=== PATIENT | male | born 1985 | race African-American/Black ===

== ENCOUNTER 2021-02-17 03:37 | Inpatient (IN) | payer OTHER, SELFPAY ==
--- NOTE | 2021-02-17 | ECG_ITS ---
Test Reason : cocaine use Blood Pressure : / mmHG Vent. Rate : 054 BPM Atrial Rate : 054 BPM P-R Int : 176 ms QRS Dur : 100 ms QT Int : 462 ms P-R-T Axes : 062 076 066 degrees QTc Int : 438 ms Sinus bradycardia Minimal voltage criteria for LVH, may be normal variant ( Sokolow-Grimaldo ) Borderline ECG When compared to the previous EKG of No significant changes seen Referred By: Irasema Rangel Electronically Signed By:ERNESTO HU MD
[2021-02-17 03:49] VITALS: BP 104/68; PULSE 89; RESP 16; TEMP 36.6; O2SAT 96; BMI 25.0
[2021-02-17 04:11] LABS: Appearance Urine CLEAR; Color Urine YELLOW; Glucose Urine UA NEG (NEG); Leukocyte Esterase Urine NEG (NEG); Nitrite Urine NEG (NEG); Specific Gravity - Urine >= 1.030 (1.005-1.025); UACC Culture Trigger NO; Urine Blood NEG (NEG); Urine Ketones NEG (NEG); Urine Protein 1+ MG/DL (NEG-TRACE)
[2021-02-17 04:17] LABS: Mucus Urine 3+ /LPF; RBC Urine 0 /HPF (0); Sperm Urine NOTED; Squamous Epithelial Cell Urine 1+ /LPF; WBC Urine 0-2 /HPF (0-4)
[2021-02-17 04:25] LABS: Amphetamine Screen Urine Not Detected (Not Detect); Barbiturates, Urine Not Detected (Not Detect); Benzodiazepines Screen Urine Not Detected (Not Detect); Cannabinoid Screen Urine Not Detected (Not Detect); Cocaine Screen Urine POSITIVE (Not Detect); Fentanyl, urine POSITIVE (Not Detect); Opiate Screen Urine POSITIVE (Not Detect); Phencyclidine Screen Urine Not Detected (Not Detect)
[2021-02-17 04:30] LABS: COVID-19 Test Negative (Negative)
--- NOTE | 2021-02-17 06:40 | PC.NURSE ---
Patient arrived at ED POD at 0400, snacked and refreshed, slept since then, behavior appropriate and cooperative, patient is currently not on medication, behavior appropriate, BHN referral completed/confirmed, patient will be evaluated in the morning, will continue to monitor.
--- NOTE | 2021-02-17 07:10 | ED.PSYCH ---
HPI - Psych General Chief Complaint: Psychiatric Symptoms Stated Complaint: Depressed/SI Time Seen by Provider: 02/17/21 07:10 Source: patient Mode of arrival: ambulatory Limitations: no limitations History of Present Illness MD complaint: suicidal ideation and feels depressed Onset (ago): week(s) Duration: getting worse History of same: Yes Relieving factors: none Exacerbating factors: other (not taking his medications) Context: not taking psychiatric medications Associated psychiatric symptoms: depression and suicidal ideation Associated symptoms: denies other symptoms Treatments prior to arrival: none Related Data Home Medications Medication Instructions Recorded Confirmed methadone 10 mg tablet 85 mg PO DAILY 02/17/21 02/17/21 Allergies Allergy/AdvReac Type Severity Reaction Status Date / Time No Known Allergies Allergy Unverified 11/19/19 15:29 [No Known Allergies*] Review of Systems Review of Systems: Constitutional : No Fever, No Chills ENT/Mouth : No Ear Pain, No Nasal Congestion, No sore throat Eyes: No Eye Pain, No Swelling, No Redness Cardiovascular : No Chest Pain, No SOB Respiratory : No Cough, No Sputum, No Dyspnea Gastrointestinal : No Nausea, No Vomiting, No Diarrhea, No Hematochezia, No Melena Genitourinary : No Dysuria, No Urinary Frequency, No Hematuria Musculoskeletal : No Myalgias Skin : No Skin Lesions, No rash Neuro : No Weakness, No Numbness, No Paresthesias, No Dizziness, No Headache Psych : positive Anxiety, positive Depression, positive SI no HI Heme/Lymph: No Lymphadenopathy Endocrine : No Polyuria, No Polydipsia All other systems reviewed and are negative [facility] Past Medical History Medical History (Updated 02/17/21 @ 10:21 by Chiquis Kiser DO) Depression Opiate dependence Social History Social History (Updated 02/17/21 @ 07:26 by Chiquis Kiser DO) Patient Tobacco Use Status: Current everyday Tobacco user Advance Directives: No Healthcare Proxy: No Guardian: No Physical Exam Vital Signs: Vital Signs: Last Vital Signs Temp 97.9 F 02/17/21 03:49 Pulse 89 02/17/21 03:49 Resp 18 02/17/21 08:52 BP 104/68 02/17/21 03:49 Pulse Ox 96 02/17/21 03:49 BMI result Body Mass Index 25.0 Appearance: Alert. Oriented X3. No acute distress. Eyes: Pupils equal, round and reactive to light. ENT: Pharynx normal. Neck: Normal inspection. Neck supple. CVS: Normal heart rate and rhythm. Pulses normal. Respiratory: No respiratory distress. Breath sounds normal. Abdomen: Soft and nontender. Skin: Skin warm and dry. Normal skin color. Normal skin turgor. Extremities: No lower extremity edema. No calf ttp Neuro: Oriented X 3. No motor deficit. No sensory deficit. CN2-12 Course Course Course Narrative: Physician observation started at 1020am Patient placed in physician observation because the patient needed more time for bed search given request for inpatient status by CARE team. At the time observation was started the patient's vitals were stable, patient is alert and oriented,Neuro: nonfocal, CV RRR, Lungs clear Physician observation ended at 145pm. Plan to admit to M5 per CARE team. MDM - Psych MDM Narrative Medical decision making narrative: 35 yo male no medical complaints here with SI and depression will obtain labs and refer to [facility] Lab Data Result diagrams: 02/17/21 07:57 02/17/21 07:57 Labs: Lab Results 02/17/21 02/17/21 02/17/21 Range/Units 04:03 04:03 04:03 WBC (4.8-10.8) X10*3/uL RBC (4.60-5.80) X10*6/uL Hgb (14.0-18.0) g/dl Hct (42.0-52.0) % MCV (80.0-98.0) fL MCH (27.0-33.0) pg MCHC (31.0-36.0) g/dl RDW (11.0-16.0) % Plt Count (160-400) X10*3/uL MPV (9.4-12.4) fL Absolute Nucleated RBC (0.0-0.012) X10*3/uL Nucleated RBC % (auto) (0.0-0.2) /100WBC Sodium (135-145) mmol/L Potassium (3.3-5.1) mmol/L Chloride (96-108) mmol/L Carbon Dioxide (22-29) mmol/L Anion Gap (12-20) BUN (9-16) mg/dL Creatinine (0.5-1.4) mg/dL Estim Creat Clear Calc Estimated GFR Random Glucose (60-115) mg/dL Calcium (8.4-10.2) mg/dL Total Bilirubin (0.0-1.0) mg/dL Direct Bilirubin (0.0-0.5) mg/dL AST (5-37) U/L ALT (0-40) U/L Alkaline Phosphatase (39-117) U/L Total Protein (6.5-8.0) g/dL Albumin (3.5-5.0) g/dL Urine Color YELLOW Urine Appearance CLEAR Urine pH 6.0 (5.0-8.0) Ur Specific [place] >= 1.030 H (1.005-1.025) Urine Protein 1+ H (NEG-TRACE) MG/DL Urine Glucose (UA) NEG (NEG) MG/DL Urine Ketones NEG (NEG) MG/DL Urine Blood NEG (NEG) Urine Nitrite NEG (NEG) Ur Leukocyte Esterase NEG (NEG) Urine RBC 0 (0) /HPF Urine WBC 0-2 (0-4) /HPF Ur Squamous Epith Cells 1+ /LPF Urine Bacteria NONE /LPF Urine Mucus 3+ /LPF Urine Sperm NOTED Urine Opiates Screen POSITIVE H (Not Detect) Urine Fentanyl Screen POSITIVE H (Not Detect) Ur Barbiturates Screen Not Detected (Not Detect) Ur Phencyclidine Scrn Not Detected (Not Detect) Ur Amphetamines Screen Not Detected (Not Detect) U Benzodiazepines Scrn Not Detected (Not Detect) Urine Cocaine Screen POSITIVE H (Not Detect) U Marijuana (THC) Screen Not Detected (Not Detect) COVID-19 (KULDEEP) Negative (Negative) COVID-19 Clin Com See Note 02/17/21 02/17/21 Range/Units 07:57 07:57 WBC 10.2 (4.8-10.8) X10*3/uL RBC 5.19 (4.60-5.80) X10*6/uL Hgb 15.0 (14.0-18.0) g/dl Hct 45.5 (42.0-52.0) % MCV 87.7 (80.0-98.0) fL MCH 28.9 (27.0-33.0) pg MCHC 33.0 (31.0-36.0) g/dl RDW 12.8 (11.0-16.0) % Plt Count 209 (160-400) X10*3/uL MPV 9.5 (9.4-12.4) fL Absolute Nucleated RBC 0.000 (0.0-0.012) X10*3/uL Nucleated RBC % (auto) 0.0 (0.0-0.2) /100WBC Sodium 142 (135-145) mmol/L Potassium 3.8 (3.3-5.1) mmol/L Chloride 105 (96-108) mmol/L Carbon Dioxide 29 (22-29) mmol/L Anion Gap 12 (12-20) BUN 18 H (9-16) mg/dL Creatinine 1.15 (0.5-1.4) mg/dL Estim Creat Clear Calc 97.4 Estimated GFR > 60 Random Glucose 104 (60-115) mg/dL Calcium 9.2 (8.4-10.2) mg/dL Total Bilirubin 0.6 (0.0-1.0) mg/dL Direct Bilirubin 0.2 (0.0-0.5) mg/dL AST 18 (5-37) U/L ALT 14 (0-40) U/L Alkaline Phosphatase 69 (39-117) U/L Total Protein 6.6 (6.5-8.0) g/dL Albumin 3.8 (3.5-5.0) g/dL Urine Color Urine Appearance Urine pH (5.0-8.0) Ur Specific [place] (1.005-1.025) Urine Protein (NEG-TRACE) MG/DL Urine Glucose (UA) (NEG) MG/DL Urine Ketones (NEG) MG/DL Urine Blood (NEG) Urine Nitrite (NEG) Ur Leukocyte Esterase (NEG) Urine RBC (0) /HPF Urine WBC (0-4) /HPF Ur Squamous Epith Cells /LPF Urine Bacteria /LPF Urine Mucus /LPF Urine Sperm Urine Opiates Screen (Not Detect) Urine Fentanyl Screen (Not Detect) Ur Barbiturates Screen (Not Detect) Ur Phencyclidine Scrn (Not Detect) Ur Amphetamines Screen (Not Detect) U Benzodiazepines Scrn (Not Detect) Urine Cocaine Screen (Not Detect) U Marijuana (THC) Screen (Not Detect) COVID-19 (KULDEEP) (Negative) COVID-19 Clin Com Discharge Plan Discharge Clinical Impression: Suicidal ideation Depression Qualifiers: Depression Type: unspecified Qualified Code(s): F32.A - Depression, unspecified Patient Disposition: Admitted As Inpatient
--- NOTE | 2021-02-17 07:29 | PC.NURSE ---
patient appears to remain at rest at present, respirations are even and unlabored, pateitn appears in no distress.
[2021-02-17 08:03] LABS: Hematocrit 45.5 % (42.0-52.0); Mean Corpuscular Hemoglobin 28.9 pg (27.0-33.0); Mean Corpuscular Volume 87.7 fL (80.0-98.0); Mean Platelet Volume 9.5 fL (9.4-12.4); Platelet Count 209 X10*3/uL (160-400); Red Blood Count 5.19 X10*6/uL (4.60-5.80); Red Cell Distribution Width 12.8 % (11.0-16.0); White Blood Count 10.2 X10*3/uL (4.8-10.8)
[2021-02-17 08:18] LABS: Alanine Aminotransferase 14 U/L (0-40); Albumin Level 3.8 g/dL (3.5-5.0); Alkaline Phosphatase 69 U/L (39-117); Anion Gap 12 (12-20); Aspartate Amino Transferase 18 U/L (5-37); Bilirubin Direct 0.2 mg/dL (0.0-0.5); Bilirubin Total 0.6 mg/dL (0.0-1.0); Blood Urea Nitrogen 18 mg/dL (9-16); Calcium 9.2 mg/dL (8.4-10.2); Carbon Dioxide 29 mmol/L (22-29); Chloride 105 mmol/L (96-108); Creatinine Clr Calc Pharmacy 97.4; Estimated Glomerular Filt Rate > 60; Glucose Random 104 mg/dL (60-115); Potassium 3.8 mmol/L (3.3-5.1); Sodium 142 mmol/L (135-145); Total Protein 6.6 g/dL (6.5-8.0)
[2021-02-17 08:52] VITALS: RESP 18
[2021-02-17] MEDS: methADONE HCl 20 MG/2 ML ORAL.CONC 85 MG PO (11:25)
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
[2021-02-17 19:30] VITALS: BP 108/54; PULSE 67; TEMP 36.4; O2SAT 98
[2021-02-17 20:51] VITALS: BP 89/54; PULSE 79
[2021-02-17] MEDS: Mirtazapine 7.5 MG TABLET PO (20:51)
[2021-02-17] MEDS: Nicotine Polacrilex 2 MG GUM 4 MG BUCCAL (21:24)
--- NOTE | 2021-02-18 09:35 | HO.ADDICT_ITS ---
History of Present Illness Date of Service: 02/18/21 Chief Complaint: SI Reason for Consult: opioid use disorder, on methadone therapy Requesting physician: Irasema Rangel Discussed with referring provider: Yes Sources of Information: patient interviewed and chart reviewed HPI Narrative: Patient is a 35-year-old male, history of opioid use disorder, cocaine use. Patient currently receiving methadone 85 mg daily. EKG completed last evening, QTC within normal limits. Tox screen on 02/17/2021 positive for opiates, fentanyl, cocaine. 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 He was lying on one side wrapped in blankets. He was alert and oriented however, and set up to discuss substance use disorder. He reports that he has been going to [facility] methadone clinic for several months. He reports that approximately 1 week ago his methadone dose was increased from 75 mg daily to 85 mg daily. He did display some withdrawal symptoms this morning including restless legs, anxiety. He reports that he had been using approximately 1 bundle daily of heroin prior to admission. He reports his last use was ?a couple of days ago ?. He reports that he is happy with current methadone dose of 85 mg. He was agreeable to have the p.r.n. comfort meds added such as hydroxyzine and loperamide. Review of Systems Review of Systems Yes all other systems are reviewed and are negative Diagnostics Vital Signs (24Hr): Vital Signs - 24 hr 02/17/21 19:30 02/17/21 20:51 Temperature 97.5 F Pulse Rate 67 79 Blood Pressure 108/54 L 89/54 L Pulse Oximetry 98 BMI result Body Mass Index 25.0 Labs Results: 02/17/21 07:57 02/17/21 07:57 Labs: Laboratory Results - last 48 hr 02/17/21 02/17/21 02/17/21 04:03 04:03 04:03 WBC RBC Hgb Hct MCV MCH MCHC RDW Plt Count MPV Absolute Nucleated RBC Nucleated RBC % (auto) Sodium Potassium Chloride Carbon Dioxide Anion Gap BUN Creatinine Estim Creat Clear Calc Estimated GFR Random Glucose Calcium Total Bilirubin Direct Bilirubin AST ALT Alkaline Phosphatase Total Protein Albumin Urine Color YELLOW Urine Appearance CLEAR Urine pH 6.0 Ur Specific [place] >= 1.030 H Urine Protein 1+ H Urine Glucose (UA) NEG Urine Ketones NEG Urine Blood NEG Urine Nitrite NEG Ur Leukocyte Esterase NEG Urine RBC 0 Urine WBC 0-2 Ur Squamous Epith Cells 1+ Urine Bacteria NONE Urine Mucus 3+ Urine Sperm NOTED Urine Opiates Screen POSITIVE H Urine Fentanyl Screen POSITIVE H Ur Barbiturates Screen Not Detected Ur Phencyclidine Scrn Not Detected Ur Amphetamines Screen Not Detected U Benzodiazepines Scrn Not Detected Urine Cocaine Screen POSITIVE H U Marijuana (THC) Screen Not Detected COVID-19 (KULDEEP) Negative COVID-19 Clin Com See Note 02/17/21 02/17/21 07:57 07:57 WBC 10.2 RBC 5.19 Hgb 15.0 Hct 45.5 MCV 87.7 MCH 28.9 MCHC 33.0 RDW 12.8 Plt Count 209 MPV 9.5 Absolute Nucleated RBC 0.000 Nucleated RBC % (auto) 0.0 Sodium 142 Potassium 3.8 Chloride 105 Carbon Dioxide 29 Anion Gap 12 BUN 18 H Creatinine 1.15 Estim Creat Clear Calc 97.4 Estimated GFR > 60 Random Glucose 104 Calcium 9.2 Total Bilirubin 0.6 Direct Bilirubin 0.2 AST 18 ALT 14 Alkaline Phosphatase 69 Total Protein 6.6 Albumin 3.8 Urine Color Urine Appearance Urine pH Ur Specific [place] Urine Protein Urine Glucose (UA) Urine Ketones Urine Blood Urine Nitrite Ur Leukocyte Esterase Urine RBC Urine WBC Ur Squamous Epith Cells Urine Bacteria Urine Mucus Urine Sperm Urine Opiates Screen Urine Fentanyl Screen Ur Barbiturates Screen Ur Phencyclidine Scrn Ur Amphetamines Screen U Benzodiazepines Scrn Urine Cocaine Screen U Marijuana (THC) Screen COVID-19 (KULDEEP) COVID-19 Clin Com Mental Status Exam Mental Status Exam Narrative: Alert and oriented, in NAD. Denies cravings. Opioid withdrawal symptoms noted include restless legs, some anxiety. Medications Medications Current Medications Acetaminophen (Acetaminophen 325 Mg Tablet) 650 mg PO Q6H PRN PRN Reason: Headache/Pain Mild Scale (1-3) Al Hydroxide/Mg Hydroxide (Magnesium Hydrox/Alum Hydrox 30 Ml Oral.Susp) 30 ml PO Q6H PRN PRN Reason: Heartburn/Nausea Clonidine HCl (Clonidine Hcl 0.1 Mg Tablet) 0.1 mg PO Q4H PRN; Protocol PRN Reason: Opioid Withdrawal signs Dicyclomine HCl (Dicyclomine Hcl 10 Mg Capsule) 20 mg PO QID PRN PRN Reason: stomach cramps Hydroxyzine HCl (Hydroxyzine Hcl 25 Mg Tablet) 25 mg PO BEDTIME PRN PRN Reason: Anxiety Loperamide HCl (Loperamide Hcl 2 Mg Capsule) 2 mg PO Q6H PRN PRN Reason: loose stools Magnesium Hydroxide (Milk Of Magnesia 30 Ml Oral.Susp) 30 ml PO DAILY PRN PRN Reason: Constipation Methadone HCl (Methadone Hcl 20 Mg/2 Ml Oral.Conc) 85 mg PO DAILY [facility] Last Admin: 02/17/21 11:25 Dose: 85 mg Documented by: Mirtazapine (Mirtazapine 7.5 Mg Tablet) 7.5 mg PO BEDTIME ROBERT Last Admin: 02/17/21 20:51 Dose: 7.5 mg Documented by: Nicotine Polacrilex (Nicotine Polacrilex 2 Mg Gum) 4 mg BUCCAL Q2H PRN PRN Reason: Nicotine Cravings Last Admin: 02/17/21 21:24 Dose: 4 mg Documented by: Trazodone HCl (Trazodone Hcl 50 Mg Tablet) 50 mg PO BEDTIME PRN PRN Reason: Insomnia Allergies Allergies Allergy/AdvReac Type Severity Reaction Status Date / Time haloperidol [From Haldol] AdvReac Muscle Verified 02/17/21 16:12 cramps Assessment & Plan Assessment & Plan (1) Opioid use disorder, severe, in early remission, on maintenance therapy, dependence: Status: Acute Code(s): F11.21 - Opioid dependence, in remission Assessment and Plan: Client reports he has a history of heroin and cocaine use. Reports he has been going to a methadone clinic at [facility] for several months. He reports his dose was recently increased 1 week ago to 85 mg. He states he has continue to use methadone while at the clinic, approximately 1 bundle of heroin daily. He reports his last use as a few days ago. He denies any cravings at this time, reports that he feels comfortable. Assessment and Plan: 1. Continue with current methadone dose 85 mg daily. 2. Add p.r.n. hydroxyzine, loperamide, to assist with any type of withdrawal symptoms. 3. Recovery team to meet with patient as needed. These recommendations were shared with covering provider Dr. Stanley. Thank you for this consultation. If you have any further questions or concerns, please do not hesitate to contact addiction/recovery team. I spent minutes with the patient and/or on the patient floor today, gre ater than?50% of which was spent counseling/coordinating care. [facility] Past Medical History Medical History (Updated 02/18/21 @ 09:39 by Theresa Muñiz) Depression Opiate dependence Social History Social History (Updated 02/17/21 @ 07:26 by Chiquis Kiser DO) Household Members: Other Housing: Apartment Do you presently have visiting nurse or other home services: No Patient Tobacco Use Status: Current everyday Tobacco user Tobacco use type: Cigarette Cigarette Packs Per Day: 1 Cigarettes Per Day: 20.0 Smoked in Last 30 Days: Yes Patient Interested in Nicotine Replacement: Yes (gum) Patient Given Instructions on How to Stop Smoking: No (pt declined) Second Hand Smoke Exposure: No Use of substances other than those prescribed or required for medical reasons: Yes Substance Use Type: Crack/Cocaine and Heroin Substance Use Frequency: Daily Last Used Substance: Days (ago) Currently Displaying Signs/Symptoms of Drug Intoxication Withdrawal: No Any prior treatment program specific to substance use: Yes (on methadone) Have you been hit, kicked, punched, or otherwise hurt by someone within the past year? If so, by whom?: No Do you feel safe in your current relationship?: No Current Relationship Is there a partner from a previous relationship who is making you feel unsafe now?: No Are you made to feel afraid or neglected: No Spiritual Healthcare Practices: n/a Roman [employer] Healthcare Practices: n/a Cultural Healthcare Practices: n/a Advance Directives: No Healthcare Proxy: No Guardian: No Do you have thoughts of harming others: None Do you have a plan to hurt others: No Plan Recently lost weight without trying: Unsure How much weight loss: Unsure Eating poorly because of decreased appetite: Yes Nutrition screen score: 5 Nutrition Risks: Poor intake 0-25% >4 days Poor oral hygiene: No
[2021-02-18 09:49] VITALS: BP 86/51; PULSE 65; TEMP 36.8
[2021-02-18 11:29] VITALS: BP 115/68; PULSE 72; RESP 17
[2021-02-18] MEDS: methADONE HCl 20 MG/2 ML ORAL.CONC 85 MG PO (11:30)
[2021-02-18 11:34] VITALS: PULSE 725
--- NOTE | 2021-02-18 12:09 | P.PNPSI_ITS ---
Subjective Subjective Date of Service: 02/18/21 Reason For Visit: SI Subjective Notes: Conditional Voluntary Interim History: The nursing staff reported that the patient has been stable, irritable at times but able to cope with the withdrawal symptoms. On interview, he was minimally engaged, with dysphoria, able to contract for safety. Mental Status Exam Mental Status Exam Patient Appearance: Disheveled Patient Orientation: Person Level of Consciousness: Awake and Obtunded Patient Behavior: Guarded and Poor Eye Contact Mood Description: Withdrawn Affect Description: Constricted Patient Cognition Impaired: Yes Ability to Follow Directions: Good Speech Pattern: Clear Hallucinations: None Delusions: Not Present Thought Process: Linear Thought Content: positive for Circumstantial and positive for Poverty of Content Judgement: Fair Diagnostics Vital Signs (24Hr): Vital Signs - 24 hr 02/17/21 19:30 02/17/21 20:51 02/18/21 09:49 Temperature 97.5 F 98.3 F Pulse Rate 67 79 65 Respiratory Rate Blood Pressure 108/54 L 89/54 L 86/51 L Pulse Oximetry 98 02/18/21 11:29 Temperature Pulse Rate 72 Respiratory Rate 17 Blood Pressure 115/68 Pulse Oximetry BMI result Body Mass Index 25.0 Labs Results: 02/17/21 07:57 02/17/21 07:57 Labs: Laboratory Results - last 48 hr 02/17/21 02/17/21 02/17/21 04:03 04:03 04:03 WBC RBC Hgb Hct MCV MCH MCHC RDW Plt Count MPV Absolute Nucleated RBC Nucleated RBC % (auto) Sodium Potassium Chloride Carbon Dioxide Anion Gap BUN Creatinine Estim Creat Clear Calc Estimated GFR Random Glucose Calcium Total Bilirubin Direct Bilirubin AST ALT Alkaline Phosphatase Total Protein Albumin Urine Color YELLOW Urine Appearance CLEAR Urine pH 6.0 Ur Specific [place] >= 1.030 H Urine Protein 1+ H Urine Glucose (UA) NEG Urine Ketones NEG Urine Blood NEG Urine Nitrite NEG Ur Leukocyte Esterase NEG Urine RBC 0 Urine WBC 0-2 Ur Squamous Epith Cells 1+ Urine Bacteria NONE Urine Mucus 3+ Urine Sperm NOTED Urine Opiates Screen POSITIVE H Urine Fentanyl Screen POSITIVE H Ur Barbiturates Screen Not Detected Ur Phencyclidine Scrn Not Detected Ur Amphetamines Screen Not Detected U Benzodiazepines Scrn Not Detected Urine Cocaine Screen POSITIVE H U Marijuana (THC) Screen Not Detected COVID-19 (KULDEEP) Negative COVID-19 Clin Com See Note 02/17/21 02/17/21 07:57 07:57 WBC 10.2 RBC 5.19 Hgb 15.0 Hct 45.5 MCV 87.7 MCH 28.9 MCHC 33.0 RDW 12.8 Plt Count 209 MPV 9.5 Absolute Nucleated RBC 0.000 Nucleated RBC % (auto) 0.0 Sodium 142 Potassium 3.8 Chloride 105 Carbon Dioxide 29 Anion Gap 12 BUN 18 H Creatinine 1.15 Estim Creat Clear Calc 97.4 Estimated GFR > 60 Random Glucose 104 Calcium 9.2 Total Bilirubin 0.6 Direct Bilirubin 0.2 AST 18 ALT 14 Alkaline Phosphatase 69 Total Protein 6.6 Albumin 3.8 Urine Color Urine Appearance Urine pH Ur Specific [place] Urine Protein Urine Glucose (UA) Urine Ketones Urine Blood Urine Nitrite Ur Leukocyte Esterase Urine RBC Urine WBC Ur Squamous Epith Cells Urine Bacteria Urine Mucus Urine Sperm Urine Opiates Screen Urine Fentanyl Screen Ur Barbiturates Screen Ur Phencyclidine Scrn Ur Amphetamines Screen U Benzodiazepines Scrn Urine Cocaine Screen U Marijuana (THC) Screen COVID-19 (KULDEEP) COVID-19 Clin Com Medications Medications Current Medications Acetaminophen (Acetaminophen 325 Mg Tablet) 650 mg PO Q6H PRN PRN Reason: Headache/Pain Mild Scale (1-3) Al Hydroxide/Mg Hydroxide (Magnesium Hydrox/Alum Hydrox 30 Ml Oral.Susp) 30 ml PO Q6H PRN PRN Reason: Heartburn/Nausea Clonidine HCl (Clonidine Hcl 0.1 Mg Tablet) 0.1 mg PO Q4H PRN; Protocol PRN Reason: Opioid Withdrawal signs Dicyclomine HCl (Dicyclomine Hcl 10 Mg Capsule) 20 mg PO QID PRN PRN Reason: stomach cramps Hydroxyzine HCl (Hydroxyzine Hcl 25 Mg Tablet) 25 mg PO BEDTIME PRN PRN Reason: Anxiety Hydroxyzine HCl (Hydroxyzine Hcl 50 Mg Tablet) 50 mg PO Q6H PRN PRN Reason: anxiety / withdrawal sx Loperamide HCl (Loperamide Hcl 2 Mg Capsule) 2 mg PO Q6H PRN PRN Reason: loose stools Magnesium Hydroxide (Milk Of Magnesia 30 Ml Oral.Susp) 30 ml PO DAILY PRN PRN Reason: Constipation Methadone HCl (Methadone Hcl 20 Mg/2 Ml Oral.Conc) 85 mg PO DAILY ROBERT Last Admin: 02/18/21 11:30 Dose: 85 mg Documented by: Mirtazapine (Mirtazapine 7.5 Mg Tablet) 7.5 mg PO BEDTIME ROBERT Last Admin: 02/17/21 20:51 Dose: 7.5 mg Documented by: Nicotine Polacrilex (Nicotine Polacrilex 2 Mg Gum) 4 mg BUCCAL Q2H PRN PRN Reason: Nicotine Cravings Last Admin: 02/17/21 21:24 Dose: 4 mg Documented by: Trazodone HCl (Trazodone Hcl 50 Mg Tablet) 50 mg PO BEDTIME PRN PRN Reason: Insomnia Allergies Allergies Allergy/AdvReac Type Severity Reaction Status Date / Time haloperidol [From Haldol] AdvReac Muscle Verified 02/17/21 16:12 cramps Assessment & Plan Assessment & Plan (1) Opioid use disorder, severe, in early remission, on maintenance therapy, dependence: Status: Acute Code(s): F11.21 - Opioid dependence, in remission (2) MDD (major depressive disorder), recurrent severe, without psychosis: Status: Acute Code(s): F33.2 - Major depressive disorder, recurrent severe without psychotic features Assessment and Plan: Tani is a 35 y.o. male who self-presented to [facility] on 02/17 reporting depression, SI, and command AH to stab himself. Pt relapsed on heroin, cocaine, and was abusing his methadone. He has long hx of polysubstance abuse and chronic relapsing. Pt reports he has been struggling with sx of depression since Thanksgiving leading to poor self care, poor sleep, low appetite, avolition, and anhedonia in context of heroin abuse. Pt denies psychotic sx at this time. Denies SI/SIB/HI upon inquiry. Pt has been non-adherent with psych treatment. Plan: Will initiate COWs monitoring, order addiction consult.?Will start remeron 7.5 mg QHS for sleep, appetite, and depression tonight. May consider re-starting SSRI for sx of depression, will defer to primary psych team. Monitor response to medications. Monitor for safety in the milieu. Discharge on stabilization. Patient seen. Chart reviewed. Discussed with team. Obtain collateral contact info?as needed I spent minutes with the patient and/or on the patient floor today, greater than?50% of which was spent counseling/coordinating care. Reason for contiued inpatient stay Substantial Risk for: inability to function, rapid decompensation and med/psych decompensation
[2021-02-18] MEDS: Nicotine Polacrilex 2 MG GUM 4 MG BUCCAL ×3 (13:30→20:25)
[2021-02-18 16:11] VITALS: RESP 17
[2021-02-18] MEDS: Milk of Magnesia 30 ML ORAL.SUSP PO (18:40)
[2021-02-18 20:00] VITALS: BP 103/56; PULSE 69; RESP 16; TEMP 36.7; O2SAT 97
[2021-02-18] MEDS: Mirtazapine 7.5 MG TABLET PO (21:27)
[2021-02-18] MEDS: hydrOXYzine HCL 25 MG TABLET PO (21:27)
[2021-02-19] MEDS: methADONE HCl 20 MG/2 ML ORAL.CONC 85 MG PO (10:22)
--- NOTE | 2021-02-19 11:33 | P.PNPSI_ITS ---
Subjective Subjective Date of Service: 02/19/21 Reason For Visit: SI Interim History: The nursing staff reported that the patient feels safe in the unit, he is still anxious and depressed but no suicidal ideation. He slept well and had his meals. On interview, he was laying on his room and denied new symptoms, refused to engage on interview. Mental Status Exam Mental Status Exam Patient Appearance: Appropriate Patient Orientation: Person Level of Consciousness: Appropriate Patient Behavior: Passive Mood Description: Depressed Affect Description: Constricted Patient Cognition Impaired: No Ability to Follow Directions: Good Speech Pattern: Clear Hallucinations: None Thought Process: Linear Thought Content: positive for Circumstantial Judgement: Fair Diagnostics Vital Signs (24Hr): Vital Signs - 24 hr 02/18/21 16:11 02/18/21 20:00 Temperature 98.0 F Pulse Rate 69 Respiratory Rate 17 16 Blood Pressure 103/56 L Pulse Oximetry 97 BMI result Body Mass Index 25.0 Labs Results: 02/17/21 07:57 02/17/21 07:57 Medications Medications Current Medications Acetaminophen (Acetaminophen 325 Mg Tablet) 650 mg PO Q6H PRN PRN Reason: Headache/Pain Mild Scale (1-3) Al Hydroxide/Mg Hydroxide (Magnesium Hydrox/Alum Hydrox 30 Ml Oral.Susp) 30 ml PO Q6H PRN PRN Reason: Heartburn/Nausea Clonidine HCl (Clonidine Hcl 0.1 Mg Tablet) 0.1 mg PO Q4H PRN; Protocol PRN Reason: Opioid Withdrawal signs Dicyclomine HCl (Dicyclomine Hcl 10 Mg Capsule) 20 mg PO QID PRN PRN Reason: stomach cramps Hydroxyzine HCl (Hydroxyzine Hcl 25 Mg Tablet) 25 mg PO BEDTIME PRN PRN Reason: Anxiety Last Admin: 02/18/21 21:27 Dose: 25 mg Documented by: Hydroxyzine HCl (Hydroxyzine Hcl 50 Mg Tablet) 50 mg PO Q6H PRN PRN Reason: anxiety / withdrawal sx Loperamide HCl (Loperamide Hcl 2 Mg Capsule) 2 mg PO Q6H PRN PRN Reason: loose stools Magnesium Hydroxide (Milk Of Magnesia 30 Ml Oral.Susp) 30 ml PO DAILY PRN PRN Reason: Constipation Last Admin: 02/18/21 18:40 Dose: 30 ml Documented by: Methadone HCl (Methadone Hcl 20 Mg/2 Ml Oral.Conc) 85 mg PO DAILY ROBERT Last Admin: 02/19/21 10:22 Dose: 85 mg Documented by: Mirtazapine (Mirtazapine 7.5 Mg Tablet) 7.5 mg PO BEDTIME [facility] Last Admin: 02/18/21 21:27 Dose: 7.5 mg Documented by: Nicotine Polacrilex (Nicotine Polacrilex 2 Mg Gum) 4 mg BUCCAL Q2H PRN PRN Reason: Nicotine Cravings Last Admin: 02/18/21 20:25 Dose: 4 mg Documented by: Trazodone HCl (Trazodone Hcl 50 Mg Tablet) 50 mg PO BEDTIME PRN PRN Reason: Insomnia Allergies Allergies Allergy/AdvReac Type Severity Reaction Status Date / Time haloperidol [From Haldol] AdvReac Muscle Verified 02/17/21 16:12 cramps Assessment & Plan Assessment & Plan (1) Opioid use disorder, severe, in early remission, on maintenance therapy, dependence: Status: Acute Code(s): F11.21 - Opioid dependence, in remission (2) MDD (major depressive disorder), recurrent severe, without psychosis: Status: Acute Code(s): F33.2 - Major depressive disorder, recurrent severe without psychotic features Assessment and Plan: Tani is a 35 y.o. male who self-presented to [facility] on 02/17 reporting depression, SI, and command AH to stab himself. Pt relapsed on heroin, cocaine, and was abusing his methadone. He has long hx of polysubstance abuse and chronic relapsing. Pt reports he has been struggling with sx of depression since Thanksgiving leading to poor self care, poor sleep, low appetite, avolition, and anhedonia in context of heroin abuse. Pt denies psychotic sx at this time. Denies SI/SIB/HI upon inquiry. Pt has been non-adherent with psych treatment. Plan: Will initiate COWs monitoring, order addiction consult.?Will start remeron 7.5 mg QHS for sleep, appetite, and depression tonight. May consider re-starting SSRI for sx of depression, will defer to primary psych team. Monitor response to medications. Monitor for safety in the milieu. Discharge on stabilization. Patient seen. Chart reviewed. Discussed with team. Obtain collateral contact info?as needed I spent minutes with the patient and/or on the patient floor today, greater than?50% of which was spent counseling/coordinating care. Reason for contiued inpatient stay Substantial Risk for: inability to function, rapid decompensation and med/psych decompensation
[2021-02-19 12:00] VITALS: BP 101/51; PULSE 64; RESP 16; TEMP 36.7; O2SAT 100
[2021-02-19] MEDS: Nicotine Polacrilex 2 MG GUM 4 MG BUCCAL ×3 (15:13→20:44)
[2021-02-19 16:00] VITALS: BP 108/67; PULSE 80; RESP 16; TEMP 35.3; O2SAT 98
[2021-02-19 20:00] VITALS: BP 116/68; PULSE 70; RESP 18; TEMP 36.7; O2SAT 98
[2021-02-19] MEDS: Mirtazapine 7.5 MG TABLET PO (20:43)
[2021-02-20] VITALS: RESP 18
[2021-02-20 04:00] VITALS: RESP 18
[2021-02-20 08:20] VITALS: BP 112/66; PULSE 63; RESP 16; TEMP 37.1; O2SAT 99
[2021-02-20] MEDS: methADONE HCl 20 MG/2 ML ORAL.CONC 85 MG PO (08:22)
[2021-02-20] MEDS: Nicotine Polacrilex 2 MG GUM 4 MG BUCCAL (09:29)
[2021-02-20] MEDS: Sennosides/Docusate Sodium TABLET 1 TAB PO (10:53)
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
--- NOTE | 2021-02-20 12:20 | PC.NURSE ---
Patient is pleasant and cooperative upon approach. Patient's speech is coherent and appropriate. Mood is cheerful with congruent affect. Patient denies anxiety and depression. Patient denies SI/HI/AH/VH. Patient reports feeling ready for discharge. Patient reports being Patient is in agreement with discharge and discharge teachings. Vital signs are stable. Patient reports sleep is good as well as appetite. Patient denies complaints at this time. Patient reports feeling safe to leave.
== END 2021-02-20 11:37 | disposition home or self-care (01) | DRG 751 ==
LOC: HO.ED 13:45 → HO.PADLT16 14:13
PROVIDERS: Admitting Provider Psychiatry & Neurology Psychiatry; Emergency Provider Emergency Medicine; Visit Provider Social Worker
DX: F33.2 Major depressive disorder, recurrent severe without psychotic features (principal); R45.851 Suicidal ideations; F11.20 Opioid dependence, uncomplicated; F17.210 Nicotine dependence, cigarettes, uncomplicated; Z71.6 Tobacco abuse counseling; Z20.822 Contact with and (suspected) exposure to COVID-19; Z79.899 Other long term (current) drug therapy
CPT/HCPCS: 36415; 80048; 80076; 80307; 81001; 85027; 87635; 93005; 99285

== ENCOUNTER 2021-04-17 16:19 | Inpatient (IN) | payer OTHER, SELFPAY ==
[2021-04-17 16:29] VITALS: BP 117/71; PULSE 76; RESP 18; TEMP 36.7; O2SAT 99; BMI 25.0
--- NOTE | 2021-04-17 16:34 | PC.NURSE ---
security aware of pt
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
[2021-04-17] MEDS: LORazepam 1 MG TABLET 2 MG PO (17:06)
[2021-04-17] MEDS: diphenhydrAMINE HCL 25 MG TABLET 50 MG PO (17:06)
[2021-04-17] MEDS: OLANZapine 10 MG TABLET PO (17:11)
--- NOTE | 2021-04-17 17:25 | PC.NURSE ---
referral faxed to [facility]
[2021-04-17 17:51] LABS: COVID-19 Test Negative (Negative)
[2021-04-17 17:58] LABS: Amphetamine Screen Urine POSITIVE (Not Detect); Barbiturates, Urine Not Detected (Not Detect); Benzodiazepines Screen Urine Not Detected (Not Detect); Cannabinoid Screen Urine POSITIVE (Not Detect); Cocaine Screen Urine POSITIVE (Not Detect); Fentanyl, urine POSITIVE (Not Detect); Opiate Screen Urine POSITIVE (Not Detect); Phencyclidine Screen Urine Not Detected (Not Detect)
[2021-04-17 18:00] LABS: MANUAL DIFF FLAG NO
[2021-04-17 18:01] LABS: Basophils Absolute Auto 0.1 X10*3/uL (0.0-0.2); Basophils Percent Auto 0.8 % (0-2); Eosinophils Absolute Auto 0.2 X10*3/uL (0.0-0.4); Eosinophils Percent Auto 2.4 % (0-4); Hematocrit 51.9 % (42.0-52.0); Hemoglobin 16.9 g/dl (14.0-18.0); Imm Gran Abs Auto 0.01 X10*3/uL (0.00-0.03); Imm Gran Pct Auto 0.2 % (0.0-0.4); Lymphocytes Absolute Auto 1.5 X10*3/uL (1.2-4.9); Lymphocytes Percent Auto 23.2 % (20-40); Mean Corpuscular HGB Conc 32.6 g/dl (31.0-36.0); Mean Corpuscular Hemoglobin 29.1 pg (27.0-33.0); Mean Corpuscular Volume 89.5 fL (80.0-98.0); Monocytes Absolute Auto 0.3 X10*3/uL (0.1-1.2); Monocytes Percent Auto 4.1 % (2-11); Neutrophils Absolute Auto 4.4 x10*3/uL (2.0-8.3); Neutrophils Percent Auto 69.3 % (45-73); Platelet Count 214 X10*3/uL (160-400); Red Cell Distribution Width 13.2 % (11.0-16.0); White Blood Count 6.4 X10*3/uL (4.8-10.8)
[2021-04-17 18:15] LABS: Ethanol < 10 mg/dL
[2021-04-17 18:19] LABS: Alanine Aminotransferase 14 U/L (0-40); Albumin Level 4.5 g/dL (3.5-5.0); Alkaline Phosphatase 79 U/L (39-117); Anion Gap 10 (12-20); Aspartate Amino Transferase 20 U/L (5-37); Bilirubin Total 0.7 mg/dL (0.0-1.0); Blood Urea Nitrogen 16 mg/dL (9-16); Calcium 10.2 mg/dL (8.4-10.2); Carbon Dioxide 33 mmol/L (22-29); Chloride 105 mmol/L (96-108); Creatinine Clr Calc Pharmacy 103.7; Estimated Glomerular Filt Rate > 60; Glucose Random 107 mg/dL (60-115); Potassium 4.6 mmol/L (3.3-5.1); Sodium 143 mmol/L (135-145); Total Protein 7.8 g/dL (6.5-8.0)
--- NOTE | 2021-04-17 22:16 | MHC.CARE ---
[facility] unable to provide a clinician for assessment. This technical proposal writer met with pt to complete evaluation, disposition is for inpatient psychiatric treatment. Pt will be held on a Sect 12a due to his level of risk for harm to others, evidenced by homicidal ideation with identified plan and access to means. Pt will remain in ED pending transfer to an inpt psychiatric unit/facility.
[2021-04-17 23:35] VITALS: BP 106/62; PULSE 111; RESP 18; TEMP 36.8; O2SAT 97
--- NOTE | 2021-04-18 | ECG_ITS ---
Test Reason : MEDCLEARANCE Blood Pressure : / mmHG Vent. Rate : 068 BPM Atrial Rate : 068 BPM P-R Int : 168 ms QRS Dur : 098 ms QT Int : 408 ms P-R-T Axes : 072 074 048 degrees QTc Int : 433 ms Normal sinus rhythm T wave abnormality, consider anterior ischemia Abnormal ECG When compared with ECG of 17-FEB-2021 19:00, T wave inversion now evident in Anterior leads Referred By: Lexi Joyce Electronically Signed By:ERNESTO HU MD
[2021-04-18] MEDS: LORazepam 1 MG TABLET 2 MG PO (02:48)
--- NOTE | 2021-04-18 06:37 | PC.NURSE ---
Patient slept through the night, shaky while awake, no distress observed/reported, methadon dose verified, faxed to pharmacy, patient is not on any medication, disposition per care team is section 12 inpatient bed search, behavior non concerning at this time, will continue to monitor.
[2021-04-18] MEDS: methADONE HCl 20 MG/2 ML ORAL.CONC 90 MG PO (06:44)
--- NOTE | 2021-04-18 07:08 | PC.NURSE ---
patient appears to remain asleep at present respirations appear to be unlabored, patient appears in no distress
[2021-04-18 14:49] LABS: COVID-19 Test Negative (Negative); IDNOW Serial# 9DD0AD1C
[2021-04-18 16:02] VITALS: BP 119/76; PULSE 68; RESP 16; TEMP 36.6; O2SAT 100
[2021-04-19 00:49] VITALS: BP 108/67; PULSE 75; RESP 16; TEMP 36.5; O2SAT 100
--- NOTE | 2021-04-19 06:27 | PC.NURSE ---
Patient slept through the night, no distress observed/reported, patient compliant with methadone dose, disposition per care team is section 12 inpatient bed search, per report patient is pre-accepted to [facility] no update so far, VSS, behavior non concerning at this time, will continue to monitor.
--- NOTE | 2021-04-19 07:25 | PC.NURSE ---
patient awake relatively soon after the change of shift, asking appropriate questions regarding medications. patient appears in no distress.
[2021-04-19] MEDS: methADONE HCl 20 MG/2 ML ORAL.CONC 90 MG PO (09:24)
--- NOTE | 2021-04-19 13:06 | PHA.MEDREC ---
Pharmacy Consult ? Medication Reconciliation RN has completed the medication reconciliation, pharmacy reviewed
[2021-04-19 15:08] LABS: COVID-19 Test Negative (Negative); IDNOW Serial# 55D5AD1C
[2021-04-19 15:42] VITALS: BP 102/64; PULSE 69; TEMP 36.9; O2SAT 98
[2021-04-19 18:10] VITALS: BP 113/70; PULSE 79; RESP 18; TEMP 36.7; O2SAT 98
[2021-04-19] MEDS: Nicotine Polacrilex 2 MG GUM BUCCAL ×2 (19:31→21:02)
[2021-04-19] MEDS: LORazepam 1 MG TABLET PO (21:00)
[2021-04-19] MEDS: OLANZapine 10 MG TABLET PO (21:00)
[2021-04-19] MEDS: traZODone HCL 50 MG TABLET PO (21:00)
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
[2021-04-20 07:00] VITALS: BMI 25.6
[2021-04-20] MEDS: methADONE HCl 20 MG/2 ML ORAL.CONC 90 MG PO (08:15)
[2021-04-20 08:38] VITALS: BP 117/74; PULSE 75; RESP 16; TEMP 36.4
[2021-04-20 11:20] LABS: Cholesterol 223 mg/dL; HDL Cholesterol 45 mg/dL; LDL Cholesterol Calculated 155 mg/dl; Magnesium 2.2 mg/dL (1.6-2.6); Triglycerides 117 mg/dL
[2021-04-20 11:22] LABS: Estimated Average Glucose 100 mg/dL; Hemoglobin A1c % 5.1 %
[2021-04-20] MEDS: Nicotine Polacrilex 2 MG GUM BUCCAL ×2 (13:41→18:17)
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
[2021-04-20 18:00] VITALS: BP 116/64; PULSE 86; RESP 17; TEMP 36.7; O2SAT 98
[2021-04-20] MEDS: LORazepam 1 MG TABLET PO (21:22)
[2021-04-20] MEDS: OLANZapine 10 MG TABLET PO (21:22)
[2021-04-20] MEDS: traZODone HCL 50 MG TABLET PO (21:22)
[2021-04-20] MEDS: Nicotine Polacrilex 2 MG GUM 4 MG BUCCAL (21:22)
[2021-04-21 06:00] VITALS: BP 116/72; PULSE 75; RESP 16; TEMP 36.7; O2SAT 97
[2021-04-21] MEDS: methADONE HCl 20 MG/2 ML ORAL.CONC 90 MG PO (07:58)
[2021-04-21 09:22] LABS: Thyroid Stimulating Hormone 4.48 uIU/mL (0.32-4.0)
[2021-04-21 10:16] LABS: Folate 11.9 ng/mL (> or = 4.0); Vitamin B12 621 pg/mL (200-900)
[2021-04-21] MEDS: Nicotine Polacrilex 2 MG GUM 4 MG BUCCAL ×2 (14:08→19:28)
--- NOTE | 2021-04-21 17:36 | P.PNPSI_ITS ---
Subjective Subjective Date of Service: 04/21/21 Reason For Visit: Depression with HI,polysubstance abuse Interim History: Patient seen and discussed with team. Patient evaluated this today and upon interview he reports he is strugging with opiate cravings, denies withdrawal. Asks to see network applications specialist due to wanting an increase in methadone. Says his sleep is alright. Does not want psychotropic medication, Im think im good with the medications im on right now. Mood is alright, a little tired here and there. Says prior to coming to the hospital I just felt like i was a little over stressed out for a month and a half and he was using heroin, not showering, eating, or caring for himself, sleeping until 2-3pm. Says he was stressed out about life and that drugs dont make it better, it makes it worse. Says he wants to be able to open up, manage my problems, talk about it, interested in therapy referral through [facility]. He denies having homicidal or assaultive ideations. Denies self harm or suicidal thoughts. Says I think taking this trip [in the hospital] is gonna help me a lot, it gets me away from the drugs. ? In the milieu, patient is safe and appropriate in behavior, participating in group, sitting in the group/kitchen area. Denies SI/SIB/HI upon inquiry. Denies irritability or assaultive ideation. Says he feels safe. Medication Compliance: Yes Side effects from medications: No Attending Groups: Yes Review of Systems Acute medical concerns: No Medical Review of Systems: unchanged Mental Status Exam Mental Status Exam Narrative: Patient Appearance:?Disheveled Patient Orientation:?Person, Place and Situation Level of Consciousness:?Sedated Patient Behavior:?Sedated, Avoidant and Uncooperative Mood Description:?Flat Affect Description:?Flat Patient Cognition Impaired:?No Ability to Follow Directions:?Fair Speech Pattern:?Impoverished Memory Description:?Remote Impaired and Episodic Impaired Delusions:?Paranoid Ideation Thought Process:?Slowed Thinking Thought Content:?positive for Suicidal Ideation and positive for Homicidal Ideation Depressive Symptoms:?Thoughts of /Suicide Judgement:?Poor Diagnostics Vital Signs (24Hr): Vital Signs - 24 hr 04/20/21 18:00 04/21/21 06:00 Temperature 98.0 F 98.0 F Pulse Rate 86 75 Respiratory Rate 17 16 Blood Pressure 116/64 116/72 Pulse Oximetry 98 97 BMI result Body Mass Index 25.6 Labs Results: 04/17/21 17:53 04/17/21 17:53 Labs: Laboratory Results - last 48 hr 04/17/21 04/17/21 04/21/21 17:53 17:53 08:07 Estimat Average Glucose 100 Hemoglobin A1c % 5.1 Magnesium 2.2 Triglycerides 117 Cholesterol 223 LDL Cholesterol, Calc 155 HDL Cholesterol 45 Vitamin B12 621 Folate 11.9 TSH 04/21/21 08:07 Estimat Average Glucose Hemoglobin A1c % Magnesium Triglycerides Cholesterol LDL Cholesterol, Calc HDL Cholesterol Vitamin B12 Folate TSH 4.48 H Medications Medications Current Medications Acetaminophen (Acetaminophen 325 Mg Tablet) 650 mg PO Q6H PRN PRN Reason: Headache/Pain Mild Scale (1-3) Al Hydroxide/Mg Hydroxide (Magnesium Hydrox/Alum Hydrox 30 Ml Oral.Susp) 30 ml PO Q6H PRN PRN Reason: Heartburn/Nausea Benztropine Mesylate (Benztropine Mesylate 0.5 Mg Tablet) 0.5 mg PO BID PRN PRN Reason: EPS Lorazepam (Lorazepam 1 Mg Tablet) 1 mg PO Q6H PRN PRN Reason: agitation Last Admin: 04/20/21 21:22 Dose: 1 mg Documented by: Magnesium Hydroxide (Milk Of Magnesia 30 Ml Oral.Susp) 30 ml PO DAILY PRN PRN Reason: Constipation Methadone HCl (Methadone Hcl 20 Mg/2 Ml Oral.Conc) 90 mg PO DAILY ROBERT Last Admin: 04/21/21 07:58 Dose: 90 mg Documented by: Nicotine Polacrilex (Nicotine Polacrilex 2 Mg Gum) 4 mg BUCCAL Q2H PRN PRN Reason: Nicotine Cravings Last Admin: 04/21/21 14:08 Dose: 4 mg Documented by: Olanzapine (Olanzapine 10 Mg Tablet) 10 mg PO BID PRN PRN Reason: psychotic agitation Last Admin: 04/20/21 21:22 Dose: 10 mg Documented by: Pharmacy Consult (Consult Rx Perform Med Rec) 1 each MISCELLANE ONCE PRN PRN Reason: Consult order Trazodone HCl (Trazodone Hcl 50 Mg Tablet) 50 mg PO BEDTIME PRN PRN Reason: Insomnia Last Admin: 04/20/21 21:22 Dose: 50 mg Documented by: Allergies Allergies Allergy/AdvReac Type Severity Reaction Status Date / Time haloperidol [From Haldol] AdvReac Muscle Verified 02/17/21 16:12 cramps Assessment & Plan Assessment & Plan (1) Recurrent major depression-severe: Status: Acute Code(s): F33.2 - Major depressive disorder, recurrent severe without psychotic features (2) Opioid use disorder, severe, in early remission, on maintenance therapy, dependence: Status: Acute Code(s): F11.21 - Opioid dependence, in remission (3) Polysubstance abuse: Status: Acute Code(s): F19.10 - Other psychoactive substance abuse, uncomplicated Plan 35 yo male, history of recurrent major depression, opiate use disorder-currently on Methadone, polysubstance use disorder, presents with SI, HI with plans to shoot others, abduct women, kill them then kill himself. Pt reports he has been off meds for several months, toxicology positive for opiates, fentanyl, amphetamines, cocaine, cannabis. Pt unwilling to meet today with tw to discuss a plan of care. Plan: Collateral contacts Diagnostics Discuss medicine options when pt is rested 04/21/21: Will place consult with network applications specialist, as pt is requesting increase in methadone for cravings. Does not want psychotropic medication at this time. I spent minutes with the patient and/or on the patient floor today, greater than?50% of which was spent counseling/coordinating care. Reason for contiued inpatient stay Substantial Risk for: rapid decompensation and med/psych decompensation
[2021-04-21 18:00] VITALS: BP 128/79; PULSE 76; RESP 16; TEMP 36.4; O2SAT 98
[2021-04-21] MEDS: traZODone HCL 50 MG TABLET PO (20:04)
[2021-04-21] MEDS: OLANZapine 10 MG TABLET PO (20:04)
[2021-04-21] MEDS: LORazepam 1 MG TABLET PO (20:04)
[2021-04-22] MEDS: methADONE HCl 20 MG/2 ML ORAL.CONC 90 MG PO (09:17)
[2021-04-22 09:30] VITALS: BP 109/66; PULSE 79; RESP 18; TEMP 36.7; O2SAT 98
[2021-04-22] MEDS: Nicotine Polacrilex 2 MG GUM 4 MG BUCCAL ×5 (11:18→22:52)
--- NOTE | 2021-04-22 12:06 | HO.ADDICT_ITS ---
History of Present Illness Date of Service: 04/22/21 Chief Complaint: Depression with HI,polysubstance abuse Reason for Consult: requests increase in methadone dose, due to cravings and withdrawal symptoms. Requesting physician: Irasema Rangel Discussed with referring provider: Yes Sources of Information: patient interviewed, chart reviewed and crisis/core team assessment reviewed HPI Narrative: Patient reports he has been receiving 90mg methaodne from [facility] methadone clinic in [place], for the past 1 1/2 months. Reports that he is craving to use opioids, and has been in process of titrating up with clinic. He reports he has also been using fentanyl and cocaine, intranasally. Reports feeling restless, with poor sleep, which he attributes to withdrawals. EKG dated 04/18/21 shows QTC of 433. Past Psychiatric History: Past meds: wellbutrin (says this was helpful), zoloft (?it was alright?). Remeron (?made me sleepy?), gabapentin (?alright?), seroquel (?too strong?). -No current OP psych providers -Hx of multiple IPLOC, ATS, EATs and CSS admission. Pt has history of outpatient therapy through [facility]. Denies history of PHP. Last IPLOC at [facility] in 2019. Review of Systems Review of Systems Yes all other systems are reviewed and are negative Constitutional: Reports no additional constitutional complaints Diagnostics Vital Signs (24Hr): Vital Signs - 24 hr 04/21/21 18:00 04/22/21 09:30 Temperature 97.5 F 98.0 F Pulse Rate 76 79 Respiratory Rate 16 18 Blood Pressure 128/79 109/66 Pulse Oximetry 98 98 BMI result Body Mass Index 25.6 Labs Results: 04/17/21 17:53 04/17/21 17:53 Labs: Laboratory Results - last 48 hr 04/21/21 04/21/21 08:07 08:07 Vitamin B12 621 Folate 11.9 TSH 4.48 H Mental Status Exam Mental Status Exam Narrative: Seen in hallway. Cooperative during encounter. Appeared restless, but fully attentive. Medications Medications Current Medications Acetaminophen (Acetaminophen 325 Mg Tablet) 650 mg PO Q6H PRN PRN Reason: Headache/Pain Mild Scale (1-3) Al Hydroxide/Mg Hydroxide (Magnesium Hydrox/Alum Hydrox 30 Ml Oral.Susp) 30 ml PO Q6H PRN PRN Reason: Heartburn/Nausea Benztropine Mesylate (Benztropine Mesylate 0.5 Mg Tablet) 0.5 mg PO BID PRN PRN Reason: EPS Lorazepam (Lorazepam 1 Mg Tablet) 1 mg PO Q6H PRN PRN Reason: agitation Last Admin: 04/21/21 20:04 Dose: 1 mg Documented by: Magnesium Hydroxide (Milk Of Magnesia 30 Ml Oral.Susp) 30 ml PO DAILY PRN PRN Reason: Constipation Nicotine Polacrilex (Nicotine Polacrilex 2 Mg Gum) 4 mg BUCCAL Q2H PRN PRN Reason: Nicotine Cravings Last Admin: 04/22/21 11:18 Dose: 4 mg Documented by: Olanzapine (Olanzapine 10 Mg Tablet) 10 mg PO BID PRN PRN Reason: psychotic agitation Last Admin: 04/21/21 20:04 Dose: 10 mg Documented by: Pharmacy Consult (Consult Rx Perform Med Rec) 1 each MISCELLANE ONCE PRN PRN Reason: Consult order Trazodone HCl (Trazodone Hcl 50 Mg Tablet) 50 mg PO BEDTIME PRN PRN Reason: Insomnia Last Admin: 04/21/21 20:04 Dose: 50 mg Documented by: Allergies Allergies Allergy/AdvReac Type Severity Reaction Status Date / Time haloperidol [From Haldol] AdvReac Muscle Verified 02/17/21 16:12 cramps Assessment & Plan Assessment & Plan (1) Opioid use disorder, severe, in early remission, on maintenance therapy, dependence: Status: Acute Code(s): F11.21 - Opioid dependence, in remission Assessment and Plan: Reports ongoing cravings and withdrawals from substances, including opioids and cocaine. Plan 1. Increase methadone by 5mg, to 95mg daily. I spent minutes with the patient and/or on the patient floor today, greater than?50% of which was spent counseling/coordinating care. PMFSH Past Medical History Medical Problems Affecting Mental Status: No Medical History (Updated 04/20/21 @ 18:07 by Isabelle Campos, MARU) Depression Opiate dependence Recurrent major depression-severe Social History Social History Household Members: Other Household Members Other:: Room-mate Housing: Apartment Do you presently have visiting nurse or other home services: No Patient Tobacco Use Status: Current everyday Tobacco user Tobacco use type: Cigarette Cigarette Packs Per Day: 1 Cigarettes Per Day: 20.0 Smoked in Last 30 Days: Yes Patient Interested in Nicotine Replacement: Yes Second Hand Smoke Exposure: No Use of substances other than those prescribed or required for medical reasons: Yes Substance Use Type: Amphetamines, Crack/Cocaine, Heroin, Marijuana and Opiates Substance Use Frequency: Occasionally Last Used Substance: Just Prior to Admission Currently Displaying Signs/Symptoms of Drug Intoxication Withdrawal: No Any prior treatment program specific to substance use: No Have you been hit, kicked, punched, or otherwise hurt by someone within the past year? If so, by whom?: No Do you feel safe in your current relationship?: No Current Relationship Is there a partner from a previous relationship who is making you feel unsafe now?: No Are you made to feel afraid or neglected: No Advance Directives: No Advance Directives Information Provided: Yes Guardian: No Do you have thoughts of harming others: None Do you have a plan to hurt others: No Plan Recently lost weight without trying: No Nutrition Risks: No Nutritional Risk Poor oral hygiene: No service: No Sexual orientation: Straight/Heterosexual
[2021-04-22] MEDS: methADONE HCl 5 MG TABLET PO (12:16)
[2021-04-22] MEDS: OLANZapine 10 MG TABLET PO ×2 (16:08→22:21)
[2021-04-22] MEDS: LORazepam 1 MG TABLET PO ×2 (16:08→22:22)
[2021-04-22] MEDS: Magnesium Hydrox/Alum Hydrox 30 ML ORAL.SUSP PO (16:12)
--- NOTE | 2021-04-22 16:55 | P.PNPSI_ITS ---
Subjective Subjective Date of Service: 04/22/21 Reason For Visit: Depression with HI,polysubstance abuse Subjective Notes: Conditional Voluntary Medical Problems Affecting Mental Status: No Interim History: met with patient. Discussed with Nursing. Patient endorses feeling depressed for the last 5-6 weeks. Has affected ability to take care of self, get out of bed and attend work. Reports that he has likely lost his job. Also reports substance relapse and hopeful to attend substance programming and inpatient rehab when feeling psychiatrically stable. Reports intermittent thoughts of hurting self and others, but they are less intense. He did appear guarded throughout interview and did not want to discuss treatment currently today regarding medications. Will attempt to discuss potential for antidepressant regimen tomorrow. Medication Compliance: Yes Side effects from medications: No Attending Groups: No Review of Systems Acute medical concerns: No Review of Systems: Unremarkable Mental Status Exam Mental Status Exam Narrative: seen in treatment room. Cooperative with grant writer but guarded throughout. Self- care okay. Organized. Depressed. Endorsed intermittent SI and HI, but less intense and admission and denies plans. Denies psychosis. Insight judgment okay Diagnostics Vital Signs (24Hr): Vital Signs - 24 hr 04/21/21 18:00 04/22/21 09:30 Temperature 97.5 F 98.0 F Pulse Rate 76 79 Respiratory Rate 16 18 Blood Pressure 128/79 109/66 Pulse Oximetry 98 98 BMI result Body Mass Index 25.6 Labs Results: 04/17/21 17:53 04/17/21 17:53 Labs: Laboratory Results - last 48 hr 04/21/21 04/21/21 08:07 08:07 Vitamin B12 621 Folate 11.9 TSH 4.48 H Medications Medications Current Medications Acetaminophen (Acetaminophen 325 Mg Tablet) 650 mg PO Q6H PRN PRN Reason: Headache/Pain Mild Scale (1-3) Al Hydroxide/Mg Hydroxide (Magnesium Hydrox/Alum Hydrox 30 Ml Oral.Susp) 30 ml PO Q6H PRN PRN Reason: Heartburn/Nausea Last Admin: 04/22/21 16:12 Dose: 30 ml Documented by: Benztropine Mesylate (Benztropine Mesylate 0.5 Mg Tablet) 0.5 mg PO BID PRN PRN Reason: EPS Lorazepam (Lorazepam 1 Mg Tablet) 1 mg PO Q6H PRN PRN Reason: agitation Last Admin: 04/22/21 16:08 Dose: 1 mg Documented by: Magnesium Hydroxide (Milk Of Magnesia 30 Ml Oral.Susp) 30 ml PO DAILY PRN PRN Reason: Constipation Methadone HCl (Methadone Hcl 5 Mg Tablet) 95 mg PO DAILY ROBERT Nicotine Polacrilex (Nicotine Polacrilex 2 Mg Gum) 4 mg BUCCAL Q2H PRN PRN Reason: Nicotine Cravings Last Admin: 04/22/21 15:07 Dose: 4 mg Documented by: Olanzapine (Olanzapine 10 Mg Tablet) 10 mg PO BID PRN PRN Reason: psychotic agitation Last Admin: 04/22/21 16:08 Dose: 10 mg Documented by: Pharmacy Consult (Consult Rx Perform Med Rec) 1 each MISCELLANE ONCE PRN PRN Reason: Consult order Trazodone HCl (Trazodone Hcl 50 Mg Tablet) 50 mg PO BEDTIME PRN PRN Reason: Insomnia Last Admin: 04/21/21 20:04 Dose: 50 mg Documented by: Allergies Allergies Allergy/AdvReac Type Severity Reaction Status Date / Time haloperidol [From Haldol] AdvReac Muscle Verified 02/17/21 16:12 cramps Assessment & Plan Assessment & Plan (1) Recurrent major depression-severe: Status: Acute Code(s): F33.2 - Major depressive disorder, recurrent severe without psychotic features (2) Opioid use disorder, severe, in early remission, on maintenance therapy, dependence: Status: Acute Code(s): F11.21 - Opioid dependence, in remission (3) Polysubstance abuse: Status: Acute Code(s): F19.10 - Other psychoactive substance abuse, uncomplicated Plan 35 yo male, history of recurrent major depression, opiate use disorder-currently on Methadone, polysubstance use disorder, presents with SI, HI with plans to shoot others, abduct women, kill them then kill himself. Pt reports he has been off meds for several months, toxicology positive for opiates, fentanyl, amphetamines, cocaine, cannabis. Pt unwilling to meet today with tw to discuss a plan of care. Plan: Collateral contacts Diagnostics Discuss medicine options when pt is rested 04/21/21: Will place consult with podiatric foot and ankle specialist, as pt is requesting increase in methadone for cravings. Does not want psychotropic medication at this time. 04/22: seen by physical education specialist today methadone adjusted. Did not want to discuss treatment currently today regarding medications. Will attempt to discuss potential for antidepressant regimen tomorrow I spent minutes with the patient and/or on the patient floor today, greater than?50% of which was spent counseling/coordinating care. Reason for contiued inpatient stay Substantial Risk for: harm to self, harm to others and inability to function
[2021-04-22 18:27] VITALS: BP 122/65; PULSE 99; RESP 18; TEMP 36.8; O2SAT 97
[2021-04-22] MEDS: traZODone HCL 50 MG TABLET PO (22:21)
[2021-04-23 06:00] VITALS: BP 107/57; PULSE 102; RESP 18; TEMP 36.6; O2SAT 96
[2021-04-23] MEDS: methADONE HCl 20 MG/2 ML ORAL.CONC 95 MG PO (09:01)
[2021-04-23] MEDS: Nicotine Polacrilex 2 MG GUM 4 MG BUCCAL ×5 (09:44→22:07)
--- NOTE | 2021-04-23 12:10 | HO.PSYCHPN ---
Subjective Subjective Date of Service: 04/23/21 Reason For Visit: Depression with HI,polysubstance abuse Subjective Notes: Conditional Voluntary Medical Problems Affecting Mental Status: No Interim History: Met with patient in room. Noted from yesterday depression for 5-6 weeks a pectin ability to take care of herself, get out of bed and attend work. Also substance relapse and still motivated for inpatient rehab and psychiatrically stable. Did discuss medications and was initially reluctant to make any changes. However did report that Zoloft was helpful in the past for mood and agreed to start 50 mg today. Reports SI and HI are less intense today. Sleep okay. Appetite okay. . Medication Compliance: Yes Side effects from medications: No Attending Groups: Intermittent Review of Systems Acute medical concerns: No Review of Systems Review of Systems Unremarkable Mental Status Exam Mental Status Exam Narrative: Seen in room. Less irritable and guarded today. Organized. Depressed. Less intense SI and HI. No plans. No overt psychosis. Insight and judgment okay Diagnostics Vital Signs (24Hr): Vital Signs - 24 hr 04/22/21 18:27 04/23/21 06:00 Temperature 98.2 F 97.8 F Pulse Rate 99 102 H Respiratory Rate 18 18 Blood Pressure 122/65 107/57 L Pulse Oximetry 97 96 BMI result Body Mass Index 25.6 Labs Results: 04/17/21 17:53 04/17/21 17:53 Medications Medications Current Medications Acetaminophen (Acetaminophen 325 Mg Tablet) 650 mg PO Q6H PRN PRN Reason: Headache/Pain Mild Scale (1-3) Al Hydroxide/Mg Hydroxide (Magnesium Hydrox/Alum Hydrox 30 Ml Oral.Susp) 30 ml PO Q6H PRN PRN Reason: Heartburn/Nausea Last Admin: 04/22/21 16:12 Dose: 30 ml Documented by: Benztropine Mesylate (Benztropine Mesylate 0.5 Mg Tablet) 0.5 mg PO BID PRN PRN Reason: EPS Lorazepam (Lorazepam 1 Mg Tablet) 1 mg PO Q6H PRN PRN Reason: agitation Last Admin: 04/22/21 22:22 Dose: 1 mg Documented by: Magnesium Hydroxide (Milk Of Magnesia 30 Ml Oral.Susp) 30 ml PO DAILY PRN PRN Reason: Constipation Methadone HCl (Methadone Hcl 20 Mg/2 Ml Oral.Conc) 95 mg PO DAILY [facility] Last Admin: 04/23/21 09:01 Dose: 95 mg Documented by: Nicotine Polacrilex (Nicotine Polacrilex 2 Mg Gum) 4 mg BUCCAL Q2H PRN PRN Reason: Nicotine Cravings Last Admin: 04/23/21 09:44 Dose: 4 mg Documented by: Olanzapine (Olanzapine 10 Mg Tablet) 10 mg PO BID PRN PRN Reason: psychotic agitation Last Admin: 04/22/21 22:21 Dose: 10 mg Documented by: Pharmacy Consult (Consult Rx Perform Med Rec) 1 each MISCELLANE ONCE PRN PRN Reason: Consult order Trazodone HCl (Trazodone Hcl 50 Mg Tablet) 50 mg PO BEDTIME PRN PRN Reason: Insomnia Last Admin: 04/22/21 22:21 Dose: 50 mg Documented by: Allergies Allergies Allergy/AdvReac Type Severity Reaction Status Date / Time haloperidol [From Haldol] AdvReac Muscle Verified 02/17/21 16:12 cramps Assessment & Plan Assessment & Plan (1) Opioid use disorder, severe, in early remission, on maintenance therapy, dependence: Status: Acute Code(s): F11.21 - Opioid dependence, in remission Assessment and Plan: Reports ongoing cravings and withdrawals from substances, including opioids and cocaine. (2) Recurrent major depression-severe: Status: Acute Code(s): F33.2 - Major depressive disorder, recurrent severe without psychotic features Assessment and Plan: 04/23/2021: Agreed to start Zoloft 50 mg. Reports a response to this positively in the past. Plan 1. Increase methadone by 5mg, to 95mg daily. I spent minutes with the patient and/or on the patient floor today, greater than?50% of which was spent counseling/coordinating care. Patient educated on: medication risk/benefits Informed Consent: understands Reason for contiued inpatient stay Substantial Risk for: harm to self and harm to others
[2021-04-23] MEDS: Sertraline HCL 50 MG TABLET PO (13:22)
[2021-04-23] MEDS: LORazepam 1 MG TABLET PO ×2 (16:03→22:06)
[2021-04-23 16:08] VITALS: BP 121/73; PULSE 109; RESP 19; TEMP 37.3; O2SAT 97
--- NOTE | 2021-04-23 16:50 | MHC.RECOVSUP ---
Recovery Support note: This display card writer met with patient to discuss methadone dosing and withdrawal symptoms. Patient was sitting in the common area watching television when this display card writer got on the unit. Patient reports he is doing well with the increased methadone dose. Patient reports no withdrawal symptoms and reports he does not feel sedated from the methadone. Patient reports he is still having cravings and reports cravings at the time of consultation. Discussed methadone maintenance and relapse prevention with patient. Discussed case with Nicolasa GUPTA.
[2021-04-23] MEDS: Mineral Oil/Petrolatum,White 106 GM Tube 1 APPL TOPICAL (21:17)
[2021-04-23] MEDS: OLANZapine 10 MG TABLET PO (22:06)
[2021-04-23] MEDS: traZODone HCL 50 MG TABLET PO (22:06)
[2021-04-24 06:00] VITALS: BP 114/66; PULSE 104; RESP 18; TEMP 36.9; O2SAT 98
[2021-04-24] MEDS: methADONE HCl 20 MG/2 ML ORAL.CONC 95 MG PO (07:34)
[2021-04-24] MEDS: Sertraline HCL 50 MG TABLET PO (07:34)
--- NOTE | 2021-04-24 09:00 | P.PNPSI_ITS ---
Subjective Subjective Date of Service: 04/24/21 Reason For Visit: Depression with HI,polysubstance abuse Subjective Notes: Conditional Voluntary Medical Problems Affecting Mental Status: No Interim History: Patient was seen and discussed in rounds today. He states that he is doing better and has been seen to be with better affect. Less depressed. Continues to have some anxiety. No active SI. He is visible, pleasant and social. He w as started on Zoloft. He denies any side effects. Eating and sleeping adequately. No changes were made today Medication Compliance: Yes Side effects from medications: No Review of Systems Review of Systems Yes all other systems are reviewed and are negative Mental Status Exam Mental Status Exam Narrative: In today's visit he is alert, oriented and pleasant. Normal speech. Moderate eye contact. Affect is appropriate and subdued. Moderate anxiety is reported. No signs of psychosis. He denies any active suicidal ideations. Cognitively intact. Judgment is intact Diagnostics Vital Signs (24Hr): Vital Signs - 24 hr 04/23/21 16:08 04/24/21 06:00 Temperature 99.1 F 98.4 F Pulse Rate 109 H 104 H Respiratory Rate 19 18 Blood Pressure 121/73 114/66 Pulse Oximetry 97 98 BMI result Body Mass Index 25.6 Labs Results: 04/17/21 17:53 04/17/21 17:53 Medications Medications Current Medications Acetaminophen (Acetaminophen 325 Mg Tablet) 650 mg PO Q6H PRN PRN Reason: Headache/Pain Mild Scale (1-3) Al Hydroxide/Mg Hydroxide (Magnesium Hydrox/Alum Hydrox 30 Ml Oral.Susp) 30 ml PO Q6H PRN PRN Reason: Heartburn/Nausea Last Admin: 04/22/21 16:12 Dose: 30 ml Documented by: Benztropine Mesylate (Benztropine Mesylate 0.5 Mg Tablet) 0.5 mg PO BID PRN PRN Reason: EPS Lorazepam (Lorazepam 1 Mg Tablet) 1 mg PO Q6H PRN PRN Reason: agitation Last Admin: 04/23/21 22:06 Dose: 1 mg Documented by: Magnesium Hydroxide (Milk Of Magnesia 30 Ml Oral.Susp) 30 ml PO DAILY PRN PRN Reason: Constipation Methadone HCl (Methadone Hcl 20 Mg/2 Ml Oral.Conc) 95 mg PO DAILY [facility] Last Admin: 04/24/21 07:34 Dose: 95 mg Documented by: Multi-Ingred Cream/Lotion/Oil/Oint (Mineral Oil/Petrolatum,White 106 Gm Tube) 1 appl TOPICAL BID [facility]; Protocol Last Admin: 04/24/21 07:37 Dose: Not Given Documented by: Nicotine Polacrilex (Nicotine Polacrilex 2 Mg Gum) 4 mg BUCCAL Q2H PRN PRN Reason: Nicotine Cravings Last Admin: 04/23/21 22:07 Dose: 4 mg Documented by: Olanzapine (Olanzapine 10 Mg Tablet) 10 mg PO BID PRN PRN Reason: psychotic agitation Last Admin: 04/23/21 22:06 Dose: 10 mg Documented by: Pharmacy Consult (Consult Rx Perform Med Rec) 1 each MISCELLANE ONCE PRN PRN Reason: Consult order Sertraline HCl (Sertraline Hcl 50 Mg Tablet) 50 mg PO DAILY [facility] Last Admin: 04/24/21 07:34 Dose: 50 mg Documented by: Trazodone HCl (Trazodone Hcl 50 Mg Tablet) 50 mg PO BEDTIME PRN PRN Reason: Insomnia Last Admin: 04/23/21 22:06 Dose: 50 mg Documented by: Allergies Allergies Allergy/AdvReac Type Severity Reaction Status Date / Time haloperidol [From Haldol] AdvReac Muscle Verified 02/17/21 16:12 cramps Assessment & Plan Assessment & Plan (1) Opioid use disorder, severe, in early remission, on maintenance therapy, dependence: Status: Acute Code(s): F11.21 - Opioid dependence, in remission Assessment and Plan: Reports ongoing cravings and withdrawals from substances, including opioids and cocaine. (2) Recurrent major depression-severe: Status: Acute Code(s): F33.2 - Major depressive disorder, recurrent severe without psychotic features Assessment and Plan: 04/23/2021: Agreed to start Zoloft 50 mg. Reports a response to this positively in the past. 04/24/2021: Continue current regimen and plans. Hopeful about the benefits of Zoloft Plan 1. Increase methadone by 5mg, to 95mg daily. I spent minutes with the patient and/or on the patient floor today, greater than?50% of which was spent counseling/coordinating care. Reason for contiued inpatient stay Substantial Risk for: harm to self
[2021-04-24] MEDS: LORazepam 1 MG TABLET PO ×2 (13:18→21:09)
[2021-04-24] MEDS: Nicotine Polacrilex 2 MG GUM 4 MG BUCCAL ×4 (13:18→21:12)
[2021-04-24 16:30] VITALS: BP 117/66; PULSE 93; TEMP 36.9; O2SAT 97
[2021-04-24] MEDS: OLANZapine 10 MG TABLET PO (21:09)
[2021-04-24] MEDS: traZODone HCL 50 MG TABLET PO (21:09)
[2021-04-25] MEDS: Nicotine Polacrilex 2 MG GUM 4 MG BUCCAL ×5 (05:37→21:44)
[2021-04-25 06:00] VITALS: BP 119/68; PULSE 92; RESP 19; TEMP 36.6; O2SAT 99
[2021-04-25] MEDS: methADONE HCl 20 MG/2 ML ORAL.CONC 95 MG PO (08:29)
[2021-04-25] MEDS: Sertraline HCL 50 MG TABLET PO (08:29)
--- NOTE | 2021-04-25 14:00 | P.PNPSI_ITS ---
Subjective Subjective Date of Service: 04/25/21 Reason For Visit: Depression with HI,polysubstance abuse Subjective Notes: Conditional Voluntary Healthcare Proxy: No Guardianship: No Medical Problems Affecting Mental Status: No Interim History: Active in groups. Would like to attend [facility] program and asks for referrals for therapy and psychopharmacology upon discharge. Will continue with [facility]-discussed increasing dose to 100 mg and stopping there. Over the weekend Methadone increase to 95 mg (5 mg increase). Initially discussed not wanting psych meds then discussed feeling sx of depression for the past ~6 weeks with self care effected, so allowed Sertraline initiation. Discussed hx of efficacy of Wellbutrin, Adderall-aware that Adderall is not the best choice for him-by history Sertraline and Wellbutrin have been most helpful. Sleep is also an issue-discussed options. Discussed discharge-will make med changes and set a tentative date for 04/28/21. Medication Compliance: Yes Side effects from medications: No Attending Groups: Yes Review of Systems Acute medical concerns: No Medical Review of Systems: unchanged Review of Systems Psychiatric: Reports anxiety (poor focus), Reports anhedonia, Reports homicidal ideation ( no, Never-so sorry I every said that-that is not me. ) and Reports suicidal ideation (denies) Mental Status Exam Mental Status Exam Narrative: Alert, oriented, anxious apprehensive. Speech is clear, articulate, detailed. Denies SI, HI-apologetic for admitting comments No evidence of psychosis, paranoia, delusional content, denies perceptual a lterations. Diagnostics Vital Signs (24Hr): Vital Signs - 24 hr 04/24/21 16:30 04/25/21 06:00 Temperature 98.5 F 97.8 F Pulse Rate 93 92 Respiratory Rate 19 Blood Pressure 117/66 119/68 Pulse Oximetry 97 99 BMI result Body Mass Index 25.6 Labs Results: 04/17/21 17:53 04/17/21 17:53 Labs: TSH 4.48 Medications Medications Current Medications Acetaminophen (Acetaminophen 325 Mg Tablet) 650 mg PO Q6H PRN PRN Reason: Headache/Pain Mild Scale (1-3) Al Hydroxide/Mg Hydroxide (Magnesium Hydrox/Alum Hydrox 30 Ml Oral.Susp) 30 ml PO Q6H PRN PRN Reason: Heartburn/Nausea Last Admin: 04/22/21 16:12 Dose: 30 ml Documented by: Benztropine Mesylate (Benztropine Mesylate 0.5 Mg Tablet) 0.5 mg PO BID PRN PRN Reason: EPS Lorazepam (Lorazepam 1 Mg Tablet) 1 mg PO Q6H PRN PRN Reason: Anxiety Last Admin: 04/24/21 21:09 Dose: 1 mg Documented by: Magnesium Hydroxide (Milk Of Magnesia 30 Ml Oral.Susp) 30 ml PO DAILY PRN PRN Reason: Constipation Methadone HCl (Methadone Hcl 20 Mg/2 Ml Oral.Conc) 95 mg PO DAILY [facility] Last Admin: 04/25/21 08:29 Dose: 95 mg Documented by: Multi-Ingred Cream/Lotion/Oil/Oint (Mineral Oil/Petrolatum,White 106 Gm Tube) 1 appl TOPICAL BID [facility]; Protocol Last Admin: 04/25/21 11:27 Dose: Not Given Documented by: Nicotine Polacrilex (Nicotine Polacrilex 2 Mg Gum) 4 mg BUCCAL Q2H PRN PRN Reason: Nicotine Cravings Last Admin: 04/25/21 13:15 Dose: 4 mg Documented by: Olanzapine (Olanzapine 10 Mg Tablet) 10 mg PO BID PRN PRN Reason: psychotic agitation Last Admin: 04/24/21 21:09 Dose: 10 mg Documented by: Pharmacy Consult (Consult Rx Perform Med Rec) 1 each MISCELLANE ONCE PRN PRN Reason: Consult order Sertraline HCl (Sertraline Hcl 50 Mg Tablet) 50 mg PO DAILY [facility] Last Admin: 04/25/21 08:29 Dose: 50 mg Documented by: Trazodone HCl (Trazodone Hcl 50 Mg Tablet) 50 mg PO BEDTIME PRN PRN Reason: Insomnia Last Admin: 04/24/21 21:09 Dose: 50 mg Documented by: Allergies Allergies Allergy/AdvReac Type Severity Reaction Status Date / Time haloperidol [From Haldol] AdvReac Muscle Verified 02/17/21 16:12 cramps Assessment & Plan Assessment & Plan (1) Opioid use disorder, severe, in early remission, on maintenance therapy, dependence: Status: Acute Code(s): F11.21 - Opioid dependence, in remission (2) Recurrent major depression-severe: Status: Acute Code(s): F33.2 - Major depressive disorder, recurrent severe without psychotic features Assessment and Plan: 04/23/2021: Agreed to start Zoloft 50 mg. Reports a response to this positively in the past. 04/24/2021: Continue current regimen and plans. Hopeful about the benefits of Zoloft 04/25/21: Continue Sertraline Wellbutrin 75 mg 0900, 1300 Seroquel 50 mg HS prn insomnia Addictions will meet with pt on 04/26/21 to discuss Methadone. I spent 25 minutes with the patient and/or on the patient floor today, greater than?50% of which was spent counseling/coordinating care. Patient educated on: diagnosis, medication risk/benefits, substance abuse and therapeutic strategies Informed Consent: understands and further education needed Reason for contiued inpatient stay Substantial Risk for: harm to self, harm to others, inability to function and rapid decompensation
[2021-04-25] MEDS: LORazepam 1 MG TABLET PO ×2 (15:42→21:44)
[2021-04-25 18:00] VITALS: BP 131/76; PULSE 94; TEMP 36.9; O2SAT 94
[2021-04-25] MEDS: traZODone HCL 50 MG TABLET PO (21:44)
[2021-04-25] MEDS: OLANZapine 10 MG TABLET PO (21:44)
--- NOTE | 2021-04-25 22:42 | PC.NURSE ---
Patient said that he would like his daily dose of Methadone be increased to 100 mg. He also said he was interested in having Hydroxyzine as a prn after discharge.
[2021-04-26] MEDS: Nicotine Polacrilex 2 MG GUM 4 MG BUCCAL ×6 (00:02→21:40)
[2021-04-26] MEDS: Sertraline HCL 50 MG TABLET PO (07:59)
[2021-04-26] MEDS: buPROPion HCL 75 MG TABLET PO ×2 (07:59→12:58)
[2021-04-26] MEDS: methADONE HCl 20 MG/2 ML ORAL.CONC 95 MG PO (08:00)
[2021-04-26 08:06] VITALS: BP 132/55; PULSE 81; RESP 16; TEMP 36.6; O2SAT 98
--- NOTE | 2021-04-26 14:01 | P.PNPSI_ITS ---
Subjective Subjective Date of Service: 04/26/21 Reason For Visit: Depression with HI,polysubstance abuse Subjective Notes: Conditional Voluntary Healthcare Proxy: No Guardianship: No Medical Problems Affecting Mental Status: No Interim History: Wellbutrin trial with effects of agitation. Discussed mood stabilizer trial with pt who agrees. Pt reports by history having benefit from hydroxyzine. Awaits [facility] placement. Medication Compliance: Yes Side effects from medications: Yes (Wellbutrin with stimulation, agitation. Hx o f use with good results.) Attending Groups: Yes Review of Systems Acute medical concerns: No Medical Review of Systems: unchanged Review of Systems Psychiatric: Reports anxiety (poor focus), Reports anhedonia, Reports homicidal ideation ( no, Never-so sorry I every said that-that is not me. ) and Reports suicidal ideation (denies) Mental Status Exam Mental Status Exam Narrative: Alert, oriented, anxious apprehensive. Speech is clear, articulate, detailed. Denies SI, HI-apologetic for admitting comments No evidence of psychosis, paranoia, delusional content, denies perceptual alterations. Diagnostics Vital Signs (24Hr): Vital Signs - 24 hr 04/25/21 18:00 04/26/21 08:06 Temperature 98.4 F 97.9 F Pulse Rate 94 81 Respiratory Rate 16 Blood Pressure 131/76 132/55 L Pulse Oximetry 94 98 BMI result Body Mass Index 25.6 Labs Results: 04/17/21 17:53 04/17/21 17:53 Medications Medications Current Medications Acetaminophen (Acetaminophen 325 Mg Tablet) 650 mg PO Q6H PRN PRN Reason: Headache/Pain Mild Scale (1-3) Al Hydroxide/Mg Hydroxide (Magnesium Hydrox/Alum Hydrox 30 Ml Oral.Susp) 30 ml PO Q6H PRN PRN Reason: Heartburn/Nausea Last Admin: 04/22/21 16:12 Dose: 30 ml Documented by: Benztropine Mesylate (Benztropine Mesylate 0.5 Mg Tablet) 0.5 mg PO BID PRN PRN Reason: EPS Bupropion HCl (Bupropion Hcl 75 Mg Tablet) 75 mg PO 0900,1300 [facility] Last Admin: 04/26/21 12:58 Dose: 75 mg Documented by: Lorazepam (Lorazepam 1 Mg Tablet) 1 mg PO Q6H PRN PRN Reason: Anxiety Last Admin: 04/25/21 21:44 Dose: 1 mg Documented by: Magnesium Hydroxide (Milk Of Magnesia 30 Ml Oral.Susp) 30 ml PO DAILY PRN PRN Reason: Constipation Methadone HCl (Methadone Hcl 20 Mg/2 Ml Oral.Conc) 95 mg PO DAILY [facility] Last Admin: 04/26/21 08:00 Dose: 95 mg Documented by: Multi-Ingred Cream/Lotion/Oil/Oint (Mineral Oil/Petrolatum,White 106 Gm Tube) 1 appl TOPICAL BID [facility]; Protocol Last Admin: 04/26/21 08:00 Dose: Not Given Documented by: Nicotine Polacrilex (Nicotine Polacrilex 2 Mg Gum) 4 mg BUCCAL Q2H PRN PRN Reason: Nicotine Cravings Last Admin: 04/26/21 12:59 Dose: 4 mg Documented by: Olanzapine (Olanzapine 10 Mg Tablet) 10 mg PO BID PRN PRN Reason: psychotic agitation Last Admin: 04/25/21 21:44 Dose: 10 mg Documented by: Pharmacy Consult (Consult Rx Perform Med Rec) 1 each MISCELLANE ONCE PRN PRN Reason: Consult order Sertraline HCl (Sertraline Hcl 50 Mg Tablet) 50 mg PO DAILY [facility] Last Admin: 04/26/21 07:59 Dose: 50 mg Documented by: Trazodone HCl (Trazodone Hcl 50 Mg Tablet) 50 mg PO BEDTIME PRN PRN Reason: Insomnia Last Admin: 04/25/21 21:44 Dose: 50 mg Documented by: Allergies Allergies Allergy/AdvReac Type Severity Reaction Status Date / Time haloperidol [From Haldol] AdvReac Muscle Verified 02/17/21 16:12 cramps Assessment & Plan Assessment & Plan (1) Opioid use disorder, severe, in early remission, on maintenance therapy, dependence: Status: Acute Code(s): F11.21 - Opioid dependence, in remission (2) Recurrent major depression-severe: Status: Acute Code(s): F33.2 - Major depressive disorder, recurrent severe without psychotic features Assessment and Plan: 04/23/2021: Agreed to start Zoloft 50 mg. Reports a response to this positively in the past. 04/24/2021: Continue current regimen and plans. Hopeful about the benefits of Zoloft 04/25/21: Continue Sertraline Wellbutrin 75 mg 0900, 1300 Seroquel 50 mg HS prn insomnia Addictions will meet with pt on 04/26/21 to discuss Methadone. 04/26/21: Discontinue Wellbutrin-it was activating and appeared to cause more agitation. By history, pt reports it had worked very well. Trileptal 300 mg hs Hydroxyzine prn Pt plans to meet with addictions today-asks to increase Methadone to 100 mg daily and hold at that dosing. I spent minutes with the patient and/or on the patient floor today, greater than?50% of which was spent counseling/coordinating care. Patient educated on: medication risk/benefits and substance abuse Informed Consent: understands and further education needed Reason for contiued inpatient stay Substantial Risk for: inability to function and rapid decompensation
[2021-04-26 19:25] VITALS: BP 117/67; PULSE 90; TEMP 36.9; O2SAT 97
[2021-04-26] MEDS: OXcarbazepine 300 MG TABLET PO (21:38)
[2021-04-26] MEDS: LORazepam 1 MG TABLET PO (21:38)
[2021-04-26] MEDS: traZODone HCL 50 MG TABLET PO (21:38)
--- NOTE | 2021-04-27 | ECG_ITS ---
Test Reason : CHECK QTC Blood Pressure : / mmHG Vent. Rate : 089 BPM Atrial Rate : 089 BPM P-R Int : 158 ms QRS Dur : 092 ms QT Int : 388 ms P-R-T Axes : 063 054 027 degrees QTc Int : 472 ms Normal sinus rhythm Normal ECG When compared with ECG of 18-APR-2021 19:12, No significant change was found Referred By: Theresa Muñiz Electronically Signed By:RONALD DICKENS
[2021-04-27 07:00] VITALS: BMI 27.8
[2021-04-27] MEDS: Sertraline HCL 50 MG TABLET PO (07:53)
[2021-04-27] MEDS: methADONE HCl 20 MG/2 ML ORAL.CONC 100 MG PO (07:53)
[2021-04-27 07:56] VITALS: BP 120/81; PULSE 78; RESP 16; TEMP 36.4; O2SAT 98
[2021-04-27] MEDS: Nicotine Polacrilex 2 MG GUM 4 MG BUCCAL ×4 (09:17→17:08)
[2021-04-27] MEDS: Benztropine Mesylate 0.5 MG TABLET PO (17:33)
[2021-04-27] MEDS: Acetaminophen 325 MG TABLET 650 MG PO (17:33)
--- NOTE | 2021-04-27 17:53 | HO.PSYCHPN ---
Subjective Subjective Date of Service: 04/27/21 Reason For Visit: Depression with HI,polysubstance abuse Interim History: Tolerating Trileptal. Will increase dosage today. Asks to clarify admission statements-Feeling badly- I would never hurt women or anyone for that matter . I want to be clear-I don't know where that came from. Looking at discharge for 04/28. Poss[facility] if a bed becomes available. Pt is prepared, believes his treatment is on a positive path. Intends to follow up with out pt care and treatment. Medication Compliance: Yes Side effects from medications: No Attending Groups: Yes Review of Systems Acute medical concerns: No Medical Review of Systems: unchanged Review of Systems Psychiatric: Reports no additional psychiatric complaints Mental Status Exam Mental Status Exam Patient Appearance: Appropriate Patient Orientation: Person, Place, Time and Situation Level of Consciousness: Alert Patient Behavior: Appropriate, Talkative, Cooperative and Good Eye Contact Mood Description: Calm Affect Description: Calm and Labile (at times) Patient Cognition Impaired: No Ability to Follow Directions: Good Speech Pattern: Spontaneous Speech Memory Description: Episodic Impaired Hallucinations: None Delusions: Not Present Thought Process: Goal Oriented Thought Content: positive for Goal Oriented Judgement: Good Diagnostics Vital Signs (24Hr): Vital Signs - 24 hr 04/26/21 19:25 04/27/21 07:56 Temperature 98.4 F 97.6 F Pulse Rate 90 78 Respiratory Rate 16 Blood Pressure 117/67 120/81 Pulse Oximetry 97 98 BMI result Body Mass Index 27.8 Labs Results: 04/17/21 17:53 04/17/21 17:53 Medications Medications Current Medications Acetaminophen (Acetaminophen 325 Mg Tablet) 650 mg PO Q6H PRN PRN Reason: Headache/Pain Mild Scale (1-3) Last Admin: 04/27/21 17:33 Dose: 650 mg Documented by: Al Hydroxide/Mg Hydroxide (Magnesium Hydrox/Alum Hydrox 30 Ml Oral.Susp) 30 ml PO Q6H PRN PRN Reason: Heartburn/Nausea Last Admin: 04/22/21 16:12 Dose: 30 ml Documented by: Benztropine Mesylate (Benztropine Mesylate 0.5 Mg Tablet) 0.5 mg PO BID PRN PRN Reason: EPS Last Admin: 04/27/21 17:33 Dose: 0.5 mg Documented by: Hydroxyzine HCl (Hydroxyzine Hcl 25 Mg Tablet) 25 mg PO QID PRN PRN Reason: anxiety Lorazepam (Lorazepam 1 Mg Tablet) 1 mg PO Q6H PRN PRN Reason: Anxiety Last Admin: 04/26/21 21:38 Dose: 1 mg Documented by: Magnesium Hydroxide (Milk Of Magnesia 30 Ml Oral.Susp) 30 ml PO DAILY PRN PRN Reason: Constipation Methadone HCl (Methadone Hcl 20 Mg/2 Ml Oral.Conc) 100 mg PO DAILY [facility] Last Admin: 04/27/21 07:53 Dose: 100 mg Documented by: Multi-Ingred Cream/Lotion/Oil/Oint (Mineral Oil/Petrolatum,White 106 Gm Tube) 1 appl TOPICAL BID [facility]; Protocol Last Admin: 04/27/21 08:22 Dose: Not Given Documented by: Nicotine Polacrilex (Nicotine Polacrilex 2 Mg Gum) 4 mg BUCCAL Q2H PRN PRN Reason: Nicotine Cravings Last Admin: 04/27/21 17:08 Dose: 4 mg Documented by: Patient Own Medication (Act Dry Mouth Lozenges With Xylitol) 1 each PO Q1H PRN PRN Reason: dry mouth Last Admin: 04/27/21 17:08 Dose: 1 each Documented by: Olanzapine (Olanzapine 10 Mg Tablet) 10 mg PO BID PRN PRN Reason: psychotic agitation Last Admin: 04/25/21 21:44 Dose: 10 mg Documented by: Oxcarbazepine (Oxcarbazepine 300 Mg Tablet) 300 mg PO BEDTIME [facility] Last Admin: 04/26/21 21:38 Dose: 300 mg Documented by: Pharmacy Consult (Consult Rx Perform Med Rec) 1 each MISCELLANE ONCE PRN PRN Reason: Consult order Sertraline HCl (Sertraline Hcl 50 Mg Tablet) 50 mg PO DAILY [facility] Last Admin: 04/27/21 07:53 Dose: 50 mg Documented by: Trazodone HCl (Trazodone Hcl 50 Mg Tablet) 50 mg PO BEDTIME PRN PRN Reason: Insomnia Last Admin: 04/26/21 21:38 Dose: 50 mg Documented by: Allergies Allergies Allergy/AdvReac Type Severity Reaction Status Date / Time haloperidol [From Haldol] AdvReac Muscle Verified 02/17/21 16:12 cramps Assessment & Plan Assessment & Plan (1) Opioid use disorder, severe, in early remission, on maintenance therapy, dependence: Status: Acute Code(s): F11.21 - Opioid dependence, in remission Assessment and Plan: Reports ongoing cravings and withdrawals from substances, including opioids and cocaine. (2) Recurrent major depression-severe: Status: Acute Code(s): F33.2 - Major depressive disorder, recurrent severe without psychotic features Plan Tolerating Methadone increase to 100 mg today. Given Methadone teaching sheets for review. Increase Trileptal to 600 mg hs Plans discharge for 04/28/21. I spent minutes with the patient and/or on the patient floor today, greater than?50% of which was spent counseling/coordinating care. Patient educated on: medication risk/benefits, substance abuse and therapeutic strategies Informed Consent: understands and further education needed Reason for contiued inpatient stay Substantial Risk for: harm to self, inability to function and rapid decompensation
[2021-04-27 19:07] VITALS: BP 123/88; PULSE 84
[2021-04-27] MEDS: OXcarbazepine 300 MG TABLET 600 MG PO (20:36)
[2021-04-28 06:00] VITALS: BP 121/58; PULSE 94; RESP 18; TEMP 36.7; O2SAT 98
[2021-04-28] MEDS: Sertraline HCL 50 MG TABLET PO (08:11)
[2021-04-28] MEDS: methADONE HCl 20 MG/2 ML ORAL.CONC 100 MG PO (08:11)
[2021-04-28] MEDS: Nicotine Polacrilex 2 MG GUM 4 MG BUCCAL ×3 (09:49→14:38)
[2021-04-28] MEDS: Mineral Oil/Petrolatum,White 106 GM Tube 1 APPL TOPICAL (10:19)
--- NOTE | 2021-04-28 11:05 | PM.PSYDC ---
DS: Providers Provider Date of Service: 04/28/21 Date of admission: 04/19/21 15:32 Date of discharge: 04/28/21 Primary care physician: Abiel Physician Admitting clinician: Isabelle Campos Attending physician on admission: Shai Joyner Consults: 04/21/21 18:40 Addiction Medicine Routine Consulting Provider: Camryn Childers Reason for consultation: wants to go up on methadone Attending physician on discharge: Shai Joyner Discharging clinician: Isabelle Campos DS: Diagnosis Discharge Diagnosis (1) Recurrent major depression-severe: Status: Acute (2) Opioid use disorder, severe, in early remission, on maintenance therapy, dependence: Status: Acute DS: Medications Discharge Medications Home Medications: Previous Rx's Medication Instructions Recorded hydroxyzine HCl 25 mg tablet 25 mg PO QID PRN #60 tab 04/28/21 methadone 10 mg/mL oral 100 mg (10 mL) PO DAILY #0 ml 04/28/21 concentrate (Methadose) naloxone 4 mg/actuation nasal 4 mg INTRANASAL Q2M PRN #2 ea 04/28/21 spray (Narcan) nicotine (polacrilex) 4 mg gum 4 mg BUCCAL Q2H #100 ea 04/28/21 (Nicorette) oxcarbazepine 300 mg tablet 600 mg PO BEDTIME #0 tab 04/28/21 oxcarbazepine 600 mg tablet 600 mg PO BEDTIME #30 tab 04/28/21 (Trileptal) sertraline 50 mg tablet 50 mg PO DAILY #30 tab 04/28/21 trazodone 50 mg tablet 50 mg PO BEDTIME PRN #30 tab 04/28/21 white petrolatum-mineral oil 1 appl TOPICAL BID #10 g 04/28/21 topical cream (Dermacerin) Mental Status Exam Mental Status Exam Patient Appearance: Appropriate Patient Orientation: Person, Place, Time and Situation Level of Consciousness: Alert Patient Behavior: Appropriate, Talkative, Cooperative and Good Eye Contact Mood Description: Calm Affect Description: Calm and Labile (at times) Patient Cognition Impaired: No Ability to Follow Directions: Good Speech Pattern: Spontaneous Speech Memory Description: Episodic Impaired Hallucinations: None Delusions: Not Present Thought Process: Goal Oriented Thought Content: positive for Goal Oriented Judgement: Good DS: Summary Hospital Course Hospital Course: Admission to adult psychiatry to address symptoms of recurrent major depression, opiate use disorder, polysubstance use. Care plan, medication regime and out patient plan of care prior to admission were reviewed. Education was provided regarding management of symptoms, medication and side effects. Nursing and social service worked with Tani on collateral contacts, care planning, education regarding management of symptoms, medications and discharge planning. Trileptal, Sertraline and Trazodone were initiated to address symptoms during this hospitalization. Time spent discussing smoking cessation with patient: 3 to 10 minutes Status at Discharge Functional status at discharge: independent ambulation Overall status at discharge: patient is progressing back to baseline Time Spent with Patient Time attestation: Total time spent providing and/or coordinating discharge services: 35 Time spent: Greater than 30 minutes Discharge Plan Discharge Patient Disposition: Home, Self-Care Discharge Diagnosis: Recurrent major depression, severe Opiate Use Disorder-Methadone maintenance Polysubstance Use Disorder Referrals: [facility] [Other] (walk in if needed) [facility] [Other] - 1 Week (Referral to [facility]) [facility] [Other] - 1 Week (Referral to [facility] Holly Cuadra [Other] - 05/02/21 10:00 am (Initial Diagnostic Evaluation (Therapy) Appointment in Office) [facility] [Other] - 05/23/21 12:00 pm (Initial Psychiatric evaluation for medication management Appointment is by tele-health check your email for link to appointment) [facility] Youngblood [Other] - 06/21/21 10:20 am (Medication Management appointment with psychiatric provider Appointment by tele-health check your email for link to your scheduled appointment.) Discharge Medications: New trazodone 50 mg Tablet 50 mg PO BEDTIME PRN (Reason: Insomnia) Qty: 30 0RF oxcarbazepine 300 mg Tablet 600 mg PO BEDTIME Qty: 0 0RF hydroxyzine HCl 25 mg Tablet 25 mg PO QID PRN (Reason: anxiety) Qty: 60 0RF methadone [Methadose] 10 mg/mL Concentrate 100 mg PO DAILY Qty: 0 0RF sertraline 50 mg Tablet 50 mg PO DAILY Qty: 30 0RF Dermacerin Cream 1 appl topical BID Qty: 10 0RF Protocol: Apply to: Apply to: dry skin areas oxcarbazepine [Trileptal] 600 mg tablet 600 mg PO BEDTIME Qty: 30 0RF nicotine (polacrilex) [Nicorette] 4 mg gum 4 mg buccal Q2H Qty: 100 0RF naloxone [Narcan] 4 mg/actuation spray,non-aerosol 4 mg intranasal Q2M PRN (Reason: opioid overdose) Qty: 2 0RF Rx Instructions: spray 1 dose into ONE nostril; alternate nostrils w each dose until help arrives Discontinued methadone 10 mg Tablet 90 mg PO DAILY 0RF Discharge Orders: Discharge Order (Routine); Ordered 04/28/21 Ordered By: Isabelle Campos Diet: advance to usual diet Activity on Discharge: As tolerated Stand Alone Forms: Patient Portal Discharge page, Community Support Care Plan Goals: Mood Stabilization Sobriety Health Concerns: Depression Opiate use Polysubstance Use Plan of Treatment: Attend scheduled appointments Daily attendance at [facility] Take medications as instructed Call/Return as needed Crisis Team [phone] Assessment: non-psychotic, non-suicidal Discharge Date/Time: 04/28/21 15:26
== END 2021-04-28 15:26 | disposition home or self-care (01) | DRG 751 ==
LOC: HO.ED 04-19 16:28 → HO.PM5 04-19 16:30
PROVIDERS: Nurse Practitioner Family; Admitting Provider Clinical Nurse Specialist Psychiatric/Mental Health, Adult; Emergency Provider Nurse Practitioner Family; Visit Provider Clinical Nurse Specialist Psychiatric/Mental Health, Adult
DX: F33.2 Major depressive disorder, recurrent severe without psychotic features (principal); R45.851 Suicidal ideations; R45.850 Homicidal ideations; F11.20 Opioid dependence, uncomplicated; F19.10 Other psychoactive substance abuse, uncomplicated; F17.210 Nicotine dependence, cigarettes, uncomplicated; Z20.822 Contact with and (suspected) exposure to COVID-19; Z79.899 Other long term (current) drug therapy
CPT/HCPCS: 36415; 80053; 80061; 80307; 82077; 82607; 82746; 83036; 83735; 84443; 85025; 87635; 93005; 99285; Q0163

== ENCOUNTER 2023-09-19 05:50 | Emergency (ER) | payer OTHER, SELFPAY ==
[2023-09-19 05:52] VITALS: BP 105/66; PULSE 76; RESP 18; TEMP 36.6; O2SAT 98; BMI 26.3
--- OUTSIDE RECORDS SUMMARY | 2023-09-19 06:07 | XMS_ITS ---
Author Organization [facility] Address [address] [place] [address] Care Team Providers Care Dial Lathe Operator Name Role Phone MD Allen Primary Care Physician Unavailab le Encounter Date(s): 04/17/19 - 04/17/19 [facility] [address] [place] [address]- Encounter Diagnosis Suicidal ideation(Discharge Diagnosis) - 04/17/19 Discharge Disposition: Psychiatric Facility Attending Physician: Alcides Arrington MD Admitting Physician: Alcides Arrington MD Vital Signs Most recent to [Reference Range]: 1 Temperature Oral [96.1-99.6 DegF] 98.4 D egF (04/17/19 3:21 PM) SpO2 [94-100 %] 98 % (04/17/19 6:00 PM) Respiratory Rate [12-24 br/min] 16 br/mi n (04/17/19 6:00 PM) Peripheral Pulse Rate [50-110 bpm] 79 bp m (04/17/19 6:00 PM) Blood Pressure [80-140/50-90 mmHg] 100/7 0mmHg (04/17/19 6:00 PM) Weight 81.6 Kg (04/17/19 8:14 AM) Height 182.8 cm (04/17/19 8:14 AM) Body Mass Index 24.42 Kg/m2 (04/17/19 8:14 AM) Problem List No Known Problems Allergies, Adverse Reactions, Alerts No Known Medication Allergies Medications No Known Medications Results Most recent to oldest [Reference Range]: 1 U Amphetamines Scrn [1000 nGm/mL Cutoff] Screen Negative (04/17/19 9:27 AM) U Benzodiazepine Scrn [200 nGm/mL Cutoff ] Screen Negative (04/17/19 9:27 AM) U Cocaine Scrn [300 nGm/mL Cutoff] Presu mptive POS *ABN* (04/17/19 9:27 AM) Confirm Positive Confirm Upon Request (04/17/19 9:27 AM) U Ethanol Interp Negative (04/17/19 9:27 AM) U Ethanol [0-49 mg/dL] <3 mg/dL (04/17/19 9:27 AM) U Opiate 300 Scrn [300 nGm/mL Cutoff] Sc reen Negative (04/17/19 9:27 AM) Social History Social History Type Response Assessment and Plan Future Appointments ??
--- OUTSIDE RECORDS SUMMARY | 2023-09-19 06:07 | XMS_ITS ---
Author Organization [facility] Address [address] [place] [address] Care Team Providers Care Financial Services Counselor Name Role Phone MD Allen Primary Care Physician Unavailab le Encounter Date(s): 04/16/19 - 04/16/19 [facility] [address] [place] [address]- Encounter Diagnosis Muscle strain(Discharge Diagnosis) - 04/16/19 Pain in calf(Discharge Diagnosis) - 04/16/19 Discharge Disposition: Home or Self Care Attending Physician: Lavern Cuadra NP Admitting Physician: Lavern Cuadra NP Vital Signs Most recent to oldest [Reference Range]: 1 Temperature Oral [96.1-99.6 DegF] 97.2 D egF (04/16/19 2:06 PM) SpO2 [94-100 %] 100 % (04/16/19 2:06 PM) Respiratory Rate [12-24 br/min] 16 br/mi n (04/16/19 2:06 PM) Peripheral Pulse Rate [50-110 bpm] 99 bp m (04/16/19 2:06 PM) Blood Pressure [80-140/50-90 mmHg] 111/7 1mmHg (04/16/19 2:06 PM) Weight 81 Kg (04/16/19 2:04 PM) Height 182 cm (04/16/19 2:04 PM) Body Mass Index 24.45 Kg/m2 (04/16/19 2:04 PM) Problem List No Known Problems Allergies, Adverse Reactions, Alerts No Known Medication Allergies Medications No Known Medications Social History Social History Type Response Assessment and Plan Future Appointments ??
[2023-09-19 06:08] LABS: MANUAL DIFF FLAG NO
[2023-09-19 06:10] LABS: Basophils Absolute Auto 0.1 X10*3/uL (0.0-0.2); Basophils Percent Auto 0.8 % (0-2); Eosinophils Absolute Auto 0.2 X10*3/uL (0.0-0.4); Eosinophils Percent Auto 1.9 % (0-4); Hematocrit 41.6 % (42.0-52.0); Hemoglobin 13.8 g/dl (14.0-18.0); Imm Gran Abs Auto 0.01 X10*3/uL (0.00-0.03); Imm Gran Pct Auto 0.1 % (0.0-0.4); Lymphocytes Absolute Auto 2.7 X10*3/uL (1.2-4.9); Lymphocytes Percent Auto 34.4 % (20-40); Mean Corpuscular HGB Conc 33.2 g/dl (31.0-36.0); Mean Corpuscular Hemoglobin 28.7 pg (27.0-33.0); Mean Corpuscular Volume 86.5 fL (80.0-98.0); Mean Platelet Volume 9.9 fL (9.4-12.4); Monocytes Absolute Auto 0.5 X10*3/uL (0.1-1.2); Monocytes Percent Auto 6.6 % (2-11); Neutrophils Absolute Auto 4.4 x10*3/uL (2.0-8.3); Neutrophils Percent Auto 56.2 % (45-73); Platelet Count 221 X10*3/uL (160-400); Red Blood Count 4.81 X10*6/uL (4.60-5.80); Red Cell Distribution Width 13.2 % (11.0-16.0); White Blood Count 7.9 X10*3/uL (4.8-10.8)
[2023-09-19 06:23] LABS: Alanine Aminotransferase 20 U/L (0-40); Albumin Level 4.1 g/dL (3.5-5.0); Alkaline Phosphatase 72 U/L (39-117); Anion Gap 15 (12-20); Aspartate Amino Transferase 29 U/L (5-37); Bilirubin Total 0.7 mg/dL (0.0-1.0); Blood Urea Nitrogen 31 mg/dL (9-16); Calcium 9.4 mg/dL (8.4-10.2); Carbon Dioxide 25 mmol/L (22-29); Chloride 106 mmol/L (96-108); Creatinine Clr Calc Pharmacy 81.4; Estimated Glomerular Filt Rate 59; Ethanol < 10 mg/dL; Glucose Random 124 mg/dL (60-115); Potassium 3.6 mmol/L (3.3-5.1); Sodium 142 mmol/L (135-145); Total Protein 7.1 g/dL (6.5-8.0)
[2023-09-19 06:32] LABS: Amphetamine Screen Urine Not Detected (Not Detect); Barbiturates, Urine Not Detected (Not Detect); Benzodiazepines Screen Urine Not Detected (Not Detect); Buprenorphine Scr Not Detected (Not Detect); Cannabinoid Screen Urine POSITIVE (Not Detect); Cocaine Screen Urine POSITIVE (Not Detect); Fentanyl, urine POSITIVE (Not Detect); Methadone Screen, Urine Positive (Not Detect); Opiate Screen Urine POSITIVE (Not Detect); Oxycodone Screen Urine Not Detected (Not Detect); Phencyclidine Screen Urine Not Detected (Not Detect)
--- NOTE | 2023-09-19 07:15 | ED_ITS ---
HPI - Psych General Chief Complaint: Psychiatric Symptoms Stated Complaint: depression Time Seen by Provider: 09/19/23 07:03 Source: patient Mode of arrival: ambulatory Limitations: no limitations History of Present Illness ED Provider: Dr. Javier Silva HPI Narrative: 37-year-old male with a history of depression, PTSD, cocaine and fentanyl use who presents emergency department for evaluation of depression and suicidal ideation. The patient states he has been feeling depressed for weeks. The patient states that he was evaluated at [facility] and sent to [facility]. He states that he was released from [facility] 1.5 weeks prior to evaluation. He states that he was started on Zoloft but he only took 2 doses and stop taking this medication. The patient takes methadone 100 mg daily and got his last dose yesterday. Patient states that he is using intranasal fentanyl and smoking cocaine. Patient states that he does have suicidal thoughts. He states that he has a plan to overdose on illicit drugs. Patient states that he has tried to cut himself in the past. He denied being ill in any other way. He denied fever, chills, rhinorrhea, sore throat, cough, chest pain, shortness of breath, nausea, vomiting or diarrhea. Related Data Previous Rx's ?Medication ?Instructions ?Recorded methadone 10 mg/mL oral 100 mg (10 mL) PO DAILY #0 mL 04/28/21 concentrate (Methadose) Allergies Allergy/AdvReac Type Severity Reaction Status Date / Time haloperidol [From Haldol] AdvReac Muscle Verified 09/19/23 05:54 cramps Review of Systems 2 Review of Systems: Yes all other systems are reviewed and are negative [facility] Past Medical History [facility] Narrative: Social history: He does smoke cigarettes. He denies alcohol use. He uses intranasal fentanyl and smokes cocaine. Medical History (Updated 09/19/23 @ 17:11 by Javier Silva MD) Recurrent major depression-severe Homicidal ideation Acute psychosis Depression Opiate dependence Social History Social History Household Members: Other Household Members Other:: Room-mate Housing: Apartment Do you presently have visiting nurse or other home services: No Patient Tobacco Use Status: Current everyday Tobacco user Tobacco use type: Cigarette Cigarette Packs Per Day: 1 Cigarettes Per Day: 20.0 Smoked in Last 30 Days: Yes Second Hand Smoke Exposure: No Use of substances other than those prescribed or required for medical reasons: Yes Substance Use Type: Amphetamines, Crack/Cocaine, Heroin, Marijuana and Opiates Advance Directives: No Advance Directives Information Provided: Yes service: No Sexual orientation: Straight/Heterosexual Physical Exam 2 Vital Signs: Vital Signs: Last Vital Signs Temp 98.0 F 09/19/23 14:37 Pulse 65 09/19/23 14:37 Resp 16 09/19/23 14:37 BP 109/70 09/19/23 14:37 Pulse Ox 98 09/19/23 14:37 O2 Del Method Room Air 09/19/23 14:37 BMI result Body Mass Index 26.3 Vital signs were normal. Exam: General: Awake, alert in no distress Head: Normocephalic, atraumatic EENT: PERRL, Lids normal, sclera normal, conjunctiva normal, nose normal , ears normal, throat without erythema or exudates Neck: Supple, no adenopathy Lung: breath sounds symmetric, no wheezing, rales or rhonchi Chest: symmetric movement, nontender Heart: regular rate and rhythm, normal S1, S2 no murmurs or rubs Abdomen: soft, non-tender, nondistended, normal bowel sounds Back: no vertebral tenderness, no CVAT Extremities: no deformities, moves all extremities symmetrically Neuro: Awake, alert, oriented, normal speech, cranial nerves intact, moves all extremities symmetrically Psych: Pleasant, cooperative Medications Administered Discontinued Medications Generic Name Dose Route Start Last Admin Trade Name Freq PRN Reason Stop Dose Admin Methadone HCl 100 mg 09/19/23 10:53 09/19/23 11:51 Methadone Hcl 20 Mg/2 Ml Oral.Conc PO 09/19/23 10:54 100 mg ONCE ONE Administration Medical Decision Making Medical Decision Making MDM Narrative: 37-year-old male with a history of depression, PTSD, cocaine and fentanyl use who presents emergency department for evaluation of depression and suicidal ideation times 2 weeks. Patient has a plan to overdose on drugs Patient was recently treated at [facility] and released 2 weeks prior, he was supposed to be taking Zoloft but has not been compliant with his medication. He continues to use intranasal fentanyl and smoke crack cocaine. The patient is in a methadone program and his last dose was yesterday. His physical examination was unremarkable. Differential diagnosis: ?Includes but is not limited to depression, suicidal ideation, anxiety, polysubstance use, anemia, electrolyte abnormalities Following evaluation was ordered: CBC, CMP, drug screen urine, ethanol level, urinalysis Patient was initially treated with the following: Methadone 100 mg orally Course: 17:08 Start physician observation My interpretation patient's laboratory evaluation as follows: CBC was normal. CMP revealed an elevated BUN of 31 with a normal creatinine of 1.35. Glucose elevated 124. LFTs were normal. Urinalysis was negative. Urine tox screen was positive for opiates, methadone, fentanyl, cocaine and THC. Ethanol was below detectable limits. Patient was evaluated by the care team and they are doing an inpatient dual diagnosis psychiatric bed search. Therefore, the patient will remain in the emergency department Behavioral Health Unit until disposition can be determined or until patient's symptoms improve over time. At the end of my shift, patient's care was turned over to my colleague, Dr. Janet Castellano. Admission/Observation Consideration of admission/observation: Escalation of care including admission/observation considered Lab Data MDM Lab Attestation statement: I reviewed the patient's lab results. 09/19/23 06:02 09/19/23 06:02 Labs: Lab Results 09/19/23 09/19/23 Range/Units 06:02 06:16 WBC 7.9 (4.8-10.8) X10*3/uL RBC 4.81 (4.60-5.80) X10*6/uL Hgb 13.8 L (14.0-18.0) g/dl Hct 41.6 L (42.0-52.0) % MCV 86.5 (80.0-98.0) fL MCH 28.7 (27.0-33.0) pg MCHC 33.2 (31.0-36.0) g/dl RDW 13.2 (11.0-16.0) % Plt Count 221 (160-400) X10*3/uL MPV 9.9 (9.4-12.4) fL Immature Gran % (Auto) 0.1 (0.0-0.4) % Neut % (Auto) 56.2 (45-73) % Lymph % (Auto) 34.4 (20-40) % [place] % (Auto) 6.6 (2-11) % Eos % (Auto) 1.9 (0-4) % Baso % (Auto) 0.8 (0-2) % Lymph # (Auto) 2.7 (1.2-4.9) X10*3/uL [place] # (Auto) 0.5 (0.1-1.2) X10*3/uL Eos # (Auto) 0.2 (0.0-0.4) X10*3/uL Baso # (Auto) 0.1 (0.0-0.2) X10*3/uL Abs Immat Gran (auto) 0.01 (0.00-0.03) X10*3/uL Absolute Neuts (auto) 4.4 (2.0-8.3) x10*3/uL Absolute Nucleated RBC 0.000 (0.0-0.012) X10*3/uL Nucleated RBC % (auto) 0.0 (0.0-0.2) /100WBC Sodium 142 (135-145) mmol/L Potassium 3.6 (3.3-5.1) mmol/L Chloride 106 (96-108) mmol/L Carbon Dioxide 25 (22-29) mmol/L Anion Gap 15 (12-20) BUN 31 H (9-16) mg/dL Creatinine 1.35 (0.5-1.4) mg/dL Estim Creat Clear Calc 81.4 Estimated GFR 59 Random Glucose 124 H (60-115) mg/dL Calcium 9.4 D (8.4-10.2) mg/dL Total Bilirubin 0.7 (0.0-1.0) mg/dL AST 29 (5-37) U/L ALT 20 (0-40) U/L Alkaline Phosphatase 72 (39-117) U/L Total Protein 7.1 (6.5-8.0) g/dL Albumin 4.1 (3.5-5.0) g/dL Urine Color Dark Yellow Urine Appearance Turbid Urine pH 5.5 (5.0-9.0) Ur Specific [place] >= 1.030 H (1.005-1.025) Urine Protein Trace (Neg-Trace) mg/dL Urine Glucose (UA) Negative (Negative) mg/dL Urine Ketones Trace (Negative) mg/dL Urine Blood Negative (Negative) Urine Nitrite Negative (Negative) Ur Leukocyte Esterase Negative (Negative) Urine Opiates Screen POSITIVE H (Not Detect) Ur Buprenorphine Scrn Not Detected (Not Detect) ng/mL Ur Oxycodone Screen Not Detected (Not Detect) ng/mL Urine Methadone Screen Positive H (Not Detect) ng/mL Urine Fentanyl Screen POSITIVE H (Not Detect) Ur Barbiturates Screen Not Detected (Not Detect) Ur Phencyclidine Scrn Not Detected (Not Detect) Ur Amphetamines Screen Not Detected (Not Detect) U Benzodiazepines Scrn Not Detected (Not Detect) Urine Cocaine Screen POSITIVE H (Not Detect) U Marijuana (THC) Screen POSITIVE H (Not Detect) Ethyl Alcohol < 10 mg/dL External Record Review External record reviewed: Inpatient record (Psychiatric hospitalization 04/22/2021 until 04/28/2021) Chronic Conditions Patient?s care impacted by: Other (Depression, cocaine use disorder, opiate use disorder) Discharge Plan Discharge Clinical Impression: Depression with suicidal ideation, Fentanyl use disorder, severe, Cocaine use Patient Disposition: Still a Patient Prescriptions: No Action methadone [Methadose] 10 mg/mL Concentrate 100 mg PO DAILY Qty: 0 0RF Interventions: [place]-Suicide Risk Severity Scale Last Done: 09/19/23 11:30 Print Language: Turkish
[2023-09-19 08:10] VITALS: BP 101/61; PULSE 68; RESP 14; TEMP 36.4; O2SAT 100
--- NOTE | 2023-09-19 09:38 | PC.NURSE ---
Dose verified - Methadone 100mg. Last dose = 09/17 @ 08:00. Zak KAUR MA. Spoke with NAM Blount.
--- NOTE | 2023-09-19 10:59 | HE.PHANOTE ---
METHADONE Pt receives from [facility] ([phone]).. Per NAM Blount at facility, pt last received 100mg 09/18/23 @ 0800.
[2023-09-19 11:30] LABS: Appearance Urine Turbid; Color Urine Dark Yellow; Glucose Urine UA Negative (Negative); Leukocyte Esterase Urine Negative (Negative); Nitrite Urine Negative (Negative); PH 5.5 (5.0-9.0); Specific Gravity - Urine >= 1.030 (1.005-1.025); Urine Blood Negative (Negative); Urine Ketones Trace mg/dL (Negative); Urine Protein Trace mg/dL (Neg-Trace)
--- NOTE | 2023-09-19 11:33 | PC.NURSE ---
assumed care of pt at 0945, breakfast tray ordered, pt resting quietly pending CARE team eval.
[2023-09-19] MEDS: methADONE HCl 20 MG/2 ML ORAL.CONC 100 MG PO (11:51)
[2023-09-19 14:37] VITALS: BP 109/70; PULSE 65; RESP 16; TEMP 36.7; O2SAT 98
--- NOTE | 2023-09-19 15:38 | MHC.CARE ---
Patient evaluated by the CARE Team, disposition dual diagnosis inpatient psychiatric treatment.
--- NOTE | 2023-09-19 17:28 | MHC.CARE ---
Addendum entered by Robert Poole 09/19/23 17:53: Pt will go to [facility] tomorrow 09/19, ETA 11am. Original Note: Pt has been accepted to [facility] [address] [place] [id number] for madelaine 09/18 ETA 9:30. Accepting is Dr. Obrien
[2023-09-19 20:33] VITALS: BP 123/66; PULSE 51; RESP 16; TEMP 36.6; O2SAT 99
[2023-09-19 23:36] VITALS: BP 111/64; PULSE 43; TEMP 36.4; O2SAT 99
[2023-09-19 23:44] VITALS: PULSE 52; RESP 16; O2SAT 98
--- NOTE | 2023-09-19 23:44 | PC.NURSE ---
This RN was informed that patient's pulse rate 49 at rest. This RN rechecked patient's pulse 52, patient denies chest pain, dizziness, lightheadedness, SOB. Patient requested saltine crackers with cranberry juice.
--- NOTE | 2023-09-20 07:14 | PC.NURSE ---
Assumed care of patient at 0645, patient appears to be sleeping, respirations even and unlabored, no apparent distress noted. Continue plan of care for transport to [facility] today
[2023-09-20] MEDS: methADONE HCl 20 MG/2 ML ORAL.CONC 100 MG PO (09:12)
[2023-09-20 09:31] VITALS: BP 105/70; PULSE 55; RESP 16; TEMP 36.4; O2SAT 100
== END 2023-09-20 09:33 | disposition other institution (70) ==
PROVIDERS: Emergency Medicine Emergency Medical Services; Emergency Provider Emergency Medicine Emergency Medical Services
DX: F33.1 Major depressive disorder, recurrent, moderate (principal); R45.851 Suicidal ideations; F17.210 Nicotine dependence, cigarettes, uncomplicated; F11.10 Opioid abuse, uncomplicated; F14.10 Cocaine abuse, uncomplicated; Z79.899 Other long term (current) drug therapy; Z71.51 Drug abuse counseling and surveillance of drug abuser
CPT/HCPCS: 36415; 80053; 80307; 81003; 85025; 99285; S9485